=== PATIENT | female | born 1935 | race Caucasian/White ===

== ENCOUNTER 2017-08-04 17:37 | Inpatient (IN) | payer OTHER, MEDICAID ==
[~2017-08-04] VITALS: Ht 154.9 cm; Wt 59.4 kg
[~2017-08-04 17:37] MED LIST: AMLO2.5T2 PO; CALC-1067 PO; CHOL100028 PO; CHOL200035 PO; ESOM40CA PO; GABA-529 PO; GLIM2TAB58 PO; LEVO25TA7 PO; LISI-600 PO; MECL-110 PO; METO100T PO; SIMV20TA2 PO; TAMO20TA4 PO; VITA1CAP PO
[2017-08-04 17:42] VITALS: BP_SYST 160
[2017-08-04] MEDS ORDERED: KETOROLAC TROMETHAMINE 15 MG VIAL IVP ONE (18:15)
[2017-08-04] MEDS ORDERED: ONDANSETRON HCL 4 MG/2 ML VIAL IVP ONE (18:15)
[2017-08-04 18:42] LABS: BASOPHILS % (AUTO) 0.4 % (0.0-2.0); EOSINOPHILS % (AUTO) 0.1 % (0.0-4.0); HEMATOCRIT 40.5 % (36-48); LYMPHOCYTES # (AUTO) 2.1 K/uL (1.0-5.5); MEAN CORPUSCULAR HEMOGLOBIN 28 pg (27-31); MEAN CORPUSCULAR HGB CONC 32 % (32-36); MEAN CORPUSCULAR VOLUME 87 fL (79.0-98.0); MONOCYTES # (AUTO) 0.6 K/uL (0.0-1.0); MONOCYTES % (AUTO) 5.5 % (1.7-9.3); NEUTROPHILS # (AUTO) 7.9 K/uL (1.8-7.7); PLATELET COUNT (AUTO) 380 K/uL (130-430); RED BLOOD CELL COUNT(AUTO) 4.68 MIL/uL (4.2-6.2); RED CELL DISTRIBUTION WIDTH 15.6 % (9.0-15.0); WHITE BLOOD COUNT (AUTO) 10.6 K/uL (4.8-10.8)
[2017-08-04 19:07] LABS: ANION GAP 13 (5-15); CALCIUM 10.1 mg/dL (8.4-11.0); CHLORIDE 105 mmol/L (98-107); CREATININE 1.16 mg/dL (0.55-1.30); GLUCOSE 129 mg/dL (70-99); SODIUM SERUM 142 mmol/L (136-145); UREA NITROGEN, BLOOD 30 mg/dL (8-21)
[2017-08-04 19:11] LABS: ALANINE AMINOTRANSFERASE 20 U/L (12-78); ALBUMIN 4.3 g/dL (3.4-4.8); ASPARTATE AMINOTRANSFERASE 21 U/L (10-37); CHOLESTEROL 273 mg/dL (<200); HDL CHOLESTEROL 65 mg/dL (>55); LDL CHOLESTEROL 200 mg/dL (<100); TOTAL BILIRUBIN 0.7 mg/dL (0.0-1.0); TRIGLYCERIDES 72 mg/dL (30-150)
[2017-08-04 19:51] LABS: BLOOD, URINE NEGATIVE (NEGATIVE); CLARITY/URINE SL CLOUDY (CLEAR); COLOR,URINE YELLOW (YELLOW); GLUCOSE,URINE NEGATIVE (NEGATIVE); KETONES,URINE 2+ (NEGATIVE); LEUKOCYTE ESTERASE ,URINE TRACE (NEGATIVE); NITRITE, URINE NEGATIVE (NEGATIVE); PH,URINE 5.5 (5.0-8.0); PROTEIN URINE 1+ (NEGATIVE); UROBILINOGEN,URINE 0.2 (0.2-1.0)
[2017-08-04 19:53] LABS: BILIRUBIN,URINE NEGATIVE (NEGATIVE)
[2017-08-04 20:01] LABS: BACTERIA,URINE MODERATE /HPF (None Seen); RBC,URINE 0-3 /HPF (0-3); WBC,URINE 20-50 /HPF (0-3)
[2017-08-04 20:02] LABS: MUCUS,URINE 1+ /LPF (None Seen)
[2017-08-04] MEDS ORDERED: ACETAMINOPHEN 325 MG TABLET PO PRN (21:00)
[2017-08-04] MEDS ORDERED: MORPHINE 4 MG/ML INJ. SYRINGE IVP PRN (21:00)
[2017-08-04 21:19] VITALS: BP_SYST 137
[2017-08-04 21:26] LABS: CHOLESTEROL 269 mg/dL (<200); HDL CHOLESTEROL 65 mg/dL (>55); LDL CHOLESTEROL 196 mg/dL (<100); TRIGLYCERIDES 70 mg/dL (30-150)
[2017-08-04] MEDS ORDERED: CARB-61 PO (22:33)
[2017-08-04] MEDS ORDERED: ACET167L15 PO (22:40)
[2017-08-05 00:45] VITALS: BP_SYST 155
[2017-08-05 03:40] VITALS: BP_SYST 160
[2017-08-05] MEDS: LEVOTHYROXINE SODIUM 0.025 MG TABLET PO SCH (06:19)
[2017-08-05 08:40] VITALS: BP_SYST 166
[2017-08-05] MEDS ORDERED: DEXTROSE 50% JECT 50 ML DISP.SYRIN IVP PRN (09:30)
[2017-08-05] MEDS ORDERED: INSULIN REGULAR, HUMAN 100 UNITS/ML, 10 ML VIAL (novoLIN R) SUBCUT PRN (09:30)
[2017-08-05] MEDS ORDERED: ONDANSETRON HCL 4 MG/2 ML VIAL IVP PRN (09:45)
[2017-08-05] MEDS ORDERED: ACETAMINOPHEN 325 MG TABLET PO PRN (09:45)
[2017-08-05] MEDS ORDERED: ENALAPRILAT DIHYDRATE 1.25 MG/ML VIAL IVP PRN (10:30)
[2017-08-05] MEDS ORDERED: PANTOPRAZOLE SODIUM 40 MG/VIAL (PROTONIX) IVP ONE (11:00)
[2017-08-05] MEDS ORDERED: PANTOPRAZOLE SODIUM 40 MG/VIAL (PROTONIX) IVP SCH (11:00)
[2017-08-05] MEDS: SIMVASTATIN 20 MG TABLET PO SCH (11:54)
[2017-08-05] MEDS: LISINOPRIL 20 MG TABLET PO SCH (11:58)
[2017-08-05] MEDS: amLODIPine BESYLATE 5 MG TABLET PO SCH (12:00)
[2017-08-05] MEDS: METOPROLOL TARTRATE 50 MG TABLET PO SCH (12:01)
[2017-08-05] MEDS: ASPIRIN 81 MG TAB.CHEW PO SCH (12:02)
[2017-08-05] MEDS: GABAPENTIN 100 MG CAPSULE PO SCH (12:03)
[2017-08-05] MEDS: NACL 0.9% 1,000 ML IV SCH ×2 (12:11→19:30)
[2017-08-05] MEDS: LEVOFLOXACIN 500 MG/D5W 100 ML IV SCH (12:12)
[2017-08-05 13:36] VITALS: BP_SYST 168
[2017-08-05 14:33] LABS: AMYLASE 134 U/L (0-100); LIPASE 116 U/L (73-393)
[2017-08-05 16:30] VITALS: BP_SYST 148
[2017-08-05 20:00] VITALS: BP_SYST 156
[2017-08-05] MEDS: hydrALAZINE HCL 20 MG/ML VIAL IVP PRN (22:43)
[2017-08-05] MEDS: MORPHINE 2 MG/ML INJ. SYRINGE IVP PRN (23:13)
[2017-08-06 01:22] VITALS: BP_SYST 130
[2017-08-06 03:58] VITALS: BP_SYST 157
[2017-08-06] MEDS: NACL 0.9% 1,000 ML IV SCH ×3 (06:07→23:01)
[2017-08-06] MEDS: hydrALAZINE HCL 20 MG/ML VIAL IVP PRN ×2 (06:08→21:33)
[2017-08-06] MEDS: LEVOTHYROXINE SODIUM 0.025 MG TABLET PO SCH (06:15)
[2017-08-06 06:33] LABS: BASOPHILS % (AUTO) 0.4 % (0.0-2.0); EOSINOPHILS # (AUTO) 0.1 K/uL (0.0-0.4); EOSINOPHILS % (AUTO) 0.5 % (0.0-4.0); HEMATOCRIT 33.1 % (36-48); HEMOGLOBIN 10.9 g/dL (12.0-16.0); LYMPHOCYTES # (AUTO) 2.4 K/uL (1.0-5.5); LYMPHOCYTES % (AUTO) 22.9 % (20.5-51.5); MEAN CORPUSCULAR HEMOGLOBIN 29 pg (27-31); MEAN CORPUSCULAR HGB CONC 33 % (32-36); MEAN CORPUSCULAR VOLUME 88 fL (79.0-98.0); MONOCYTES # (AUTO) 0.7 K/uL (0.0-1.0); MONOCYTES % (AUTO) 6.4 % (1.7-9.3); NEUTROPHILS # (AUTO) 7.1 K/uL (1.8-7.7); NEUTROPHILS % (AUTO) 69.8 % (40.0-70.0); PLATELET COUNT (AUTO) 330 K/uL (130-430); RED BLOOD CELL COUNT(AUTO) 3.79 MIL/uL (4.2-6.2); RED CELL DISTRIBUTION WIDTH 15.7 % (9.0-15.0); WHITE BLOOD COUNT (AUTO) 10.3 K/uL (4.8-10.8)
[2017-08-06] MEDS ORDERED: SIMETHICONE 40 MG/0.6 ML ML ONE (06:53)
[2017-08-06] MEDS ORDERED: fentaNYL CITRATE/PF 100 MCG/2 ML AMP ONE (06:54)
[2017-08-06 07:05] LABS: PROTHROMBIN TIME 10.4 SECS (9.5-12.5)
[2017-08-06 07:07] LABS: ANION GAP 12 (5-15); CALCIUM 9.6 mg/dL (8.4-11.0); CHLORIDE 109 mmol/L (98-107); CREATININE 1.03 mg/dL (0.55-1.30); GLUCOSE 91 mg/dL (70-99); SODIUM SERUM 146 mmol/L (136-145); UREA NITROGEN, BLOOD 39 mg/dL (8-21)
[2017-08-06] MEDS: MORPHINE 2 MG/ML INJ. SYRINGE IVP PRN (07:18)
[2017-08-06 07:25] LABS: ALANINE AMINOTRANSFERASE 14 U/L (12-78); ALBUMIN 3.3 g/dL (3.4-4.8); ASPARTATE AMINOTRANSFERASE 17 U/L (10-37); TOTAL BILIRUBIN 0.4 mg/dL (0.0-1.0)
[2017-08-06] MEDS: MIDAZOLAM HCL 5 MG/5 ML VIAL ONE ×4 (07:30→07:46)
[2017-08-06 08:45] VITALS: BP_SYST 123
[2017-08-06] MEDS: GABAPENTIN 100 MG CAPSULE PO SCH (09:00)
[2017-08-06] MEDS: ASPIRIN 81 MG TAB.CHEW PO SCH (09:00)
[2017-08-06] MEDS: SIMVASTATIN 20 MG TABLET PO SCH (09:00)
[2017-08-06] MEDS ORDERED: PANTOPRAZOLE SODIUM 40 MG/VIAL (PROTONIX) IVP SCH (09:00)
[2017-08-06] MEDS: METOPROLOL TARTRATE 50 MG TABLET PO SCH (09:00)
[2017-08-06] MEDS: amLODIPine BESYLATE 5 MG TABLET PO SCH (09:00)
[2017-08-06] MEDS: LISINOPRIL 20 MG TABLET PO SCH (09:00)
[2017-08-06] MEDS: PANTOPRAZOLE SODIUM 40 MG/VIAL (PROTONIX) IVP SCH ×2 (11:33→21:32)
[2017-08-06] MEDS: LEVOFLOXACIN 500 MG/D5W 100 ML IV SCH (11:34)
[2017-08-06 11:35] VITALS: BP_SYST 123
[2017-08-06 16:27] VITALS: BP_SYST 139
[2017-08-06 20:00] VITALS: BP_SYST 164
[2017-08-07 00:24] VITALS: BP_SYST 125
[2017-08-07 04:49] VITALS: BP_SYST 151
[2017-08-07] MEDS: LEVOTHYROXINE SODIUM 0.025 MG TABLET PO SCH (06:36)
[2017-08-07 08:38] VITALS: BP_SYST 199
[2017-08-07] MEDS: amLODIPine BESYLATE 5 MG TABLET PO SCH (09:00)
[2017-08-07] MEDS: GABAPENTIN 100 MG CAPSULE PO SCH (09:00)
[2017-08-07] MEDS: LISINOPRIL 20 MG TABLET PO SCH (09:00)
[2017-08-07] MEDS: ASPIRIN 81 MG TAB.CHEW PO SCH (09:00)
[2017-08-07] MEDS: SIMVASTATIN 20 MG TABLET PO SCH (09:00)
[2017-08-07] MEDS: PANTOPRAZOLE SODIUM 40 MG/VIAL (PROTONIX) IVP SCH ×2 (09:24→22:05)
[2017-08-07] MEDS: METOPROLOL TARTRATE 50 MG TABLET PO SCH (09:25)
[2017-08-07] MEDS: NACL 0.9% 1,000 ML IV SCH ×2 (11:21→23:58)
[2017-08-07] MEDS: LEVOFLOXACIN 500 MG/D5W 100 ML IV SCH (11:21)
[2017-08-07 13:07] VITALS: BP_SYST 147
[2017-08-07] MEDS: hydrALAZINE HCL 20 MG/ML VIAL IVP PRN (17:03)
[2017-08-07 17:21] VITALS: BP_SYST 169
[2017-08-07 20:33] VITALS: BP_SYST 137
[2017-08-08 01:05] VITALS: BP_SYST 138
[2017-08-08 05:20] VITALS: BP_SYST 158
[2017-08-08] MEDS: LEVOTHYROXINE SODIUM 0.025 MG TABLET PO SCH (06:35)
[2017-08-08 08:07] VITALS: BP_SYST 166
[2017-08-08] MEDS: ASPIRIN 81 MG TAB.CHEW PO SCH (08:52)
[2017-08-08] MEDS: amLODIPine BESYLATE 5 MG TABLET PO SCH (08:53)
[2017-08-08] MEDS: METOPROLOL TARTRATE 50 MG TABLET PO SCH (08:54)
[2017-08-08] MEDS: GABAPENTIN 100 MG CAPSULE PO SCH (08:54)
[2017-08-08] MEDS: LISINOPRIL 20 MG TABLET PO SCH (08:54)
[2017-08-08] MEDS: SIMVASTATIN 20 MG TABLET PO SCH (08:54)
[2017-08-08] MEDS: PANTOPRAZOLE SODIUM 40 MG/VIAL (PROTONIX) IVP SCH (08:55)
[2017-08-08] MEDS: NACL 0.9% 1,000 ML IV SCH (11:42)
[2017-08-08] MEDS: LEVOFLOXACIN 500 MG/D5W 100 ML IV SCH (11:42)
[2017-08-08 12:00] VITALS: BP_SYST 144
[2017-08-08 14:25] VITALS: BP_SYST 144
[2017-08-08 16:25] VITALS: BP_SYST 139
== END 2017-08-08 17:17 | disposition home or self-care (01) | DRG 392 ==
LOC: SED 17:37 → STU 21:07
PROVIDERS: ADMIT Internal Medicine Hospice and Palliative Medicine; ATTEND Internal Medicine Hospice and Palliative Medicine
PROC: 0DB38ZX Excision of Lower Esophagus, Via Natural or Artificial Opening Endoscopic, Diagnostic (ICD-10-PCS; 2017-08-06)
PROC: 0DB68ZX Excision of Stomach, Via Natural or Artificial Opening Endoscopic, Diagnostic (ICD-10-PCS; 2017-08-06)
PROC: 0DB18ZX Excision of Upper Esophagus, Via Natural or Artificial Opening Endoscopic, Diagnostic (ICD-10-PCS; 2017-08-06)
PROC: 0DC58ZZ Extirpation of Matter from Esophagus, Via Natural or Artificial Opening Endoscopic (ICD-10-PCS; principal; 2017-08-06 07:30)
DX: K20.9 Esophagitis, unspecified (principal); G20 Parkinson's disease; E11.9 Type 2 diabetes mellitus without complications; T18.128A Food in esophagus causing other injury, initial encounter; I10 Essential (primary) hypertension; E03.9 Hypothyroidism, unspecified; E78.5 Hyperlipidemia, unspecified; I25.10 Atherosclerotic heart disease of native coronary artery without angina pectoris; R19.5 Other fecal abnormalities; X58.XXXA Exposure to other specified factors, initial encounter; Y93.89 Activity, other specified; Z85.3 Personal history of malignant neoplasm of breast; Z95.2 Presence of prosthetic heart valve; Z90.13 Acquired absence of bilateral breasts and nipples; Z90.49 Acquired absence of other specified parts of digestive tract; Z80.3 Family history of malignant neoplasm of breast; Z88.0 Allergy status to penicillin; Y92.89 Other specified places as the place of occurrence of the external cause; Y99.8 Other external cause status
CPT/HCPCS: 36415; 43239; 71010; 80053; 80061; 81000-TC; 82150-TC; 82962; 83690-TC; 83880; 84484; 85025; 85610-TC; 85730-TC; 87081; 87086; 88305; 88313; 92610-GN; 93005; 93306; 96374; 96375; 97110-GP; 97116-GP; 97530-GP; 99285; C9113; J0360; J1815; J1885; J1956; J2250; J2270; J2405; J3010; J7030

== ENCOUNTER 2019-04-25 15:02 | Emergency (ER) | payer OTHER, MEDICAID ==
[~2019-04-25] VITALS: Ht 157.5 cm; Wt 72.6 kg
[~2019-04-25 15:02] MED LIST changes: +ACET167L15 PO; +CARB-61 PO; -CHOL100028 PO; +CHOL100034 PO; -CHOL200035 PO; +CHOL200075 PO
[2019-04-25] MEDS ORDERED: NACL 0.9% 1,000 ML IV ONE (15:11)
[2019-04-25] MEDS ORDERED: MORPHINE 4 MG/ML INJ. SYRINGE IVP ONE (15:15)
[2019-04-25] MEDS ORDERED: ONDANSETRON HCL 4 MG/2 ML VIAL IVP ONE (15:15)
[2019-04-25 15:25] VITALS: BP_SYST 130
[2019-04-25 16:39] LABS: BASOPHILS % (AUTO) 0.4 % (0.0-2.0); EOSINOPHILS % (AUTO) 0.4 % (0.0-4.0); HEMATOCRIT 35.9 % (36-48); HEMOGLOBIN 12.1 g/dL (12.0-16.0); LYMPHOCYTES # (AUTO) 2.8 K/uL (1.0-5.5); LYMPHOCYTES % (AUTO) 33.8 % (20.5-51.5); MEAN CORPUSCULAR HEMOGLOBIN 31 pg (27-31); MEAN CORPUSCULAR HGB CONC 34 % (32-36); MEAN CORPUSCULAR VOLUME 92 fL (79.0-98.0); MONOCYTES # (AUTO) 0.5 K/uL (0.0-1.0); MONOCYTES % (AUTO) 6.6 % (1.7-9.3); NEUTROPHILS # (AUTO) 4.8 K/uL (1.8-7.7); NEUTROPHILS % (AUTO) 58.8 % (40.0-70.0); PLATELET COUNT (AUTO) 324 K/uL (130-430); RED BLOOD CELL COUNT(AUTO) 3.91 MIL/uL (4.2-6.2); WHITE BLOOD COUNT (AUTO) 8.2 K/uL (4.8-10.8)
[2019-04-25 16:53] LABS: ANION GAP 8 (5-15); CALCIUM 9.9 mg/dL (8.4-11.0); CHLORIDE 102 mmol/L (98-107); GLUCOSE 99 mg/dL (70-99); INR 0.9 (0.8-1.2); POTASSIUM 4.2 mmol/L (3.5-5.1); PROTHROMBIN TIME 9.3 SECS (9.5-12.5); SODIUM SERUM 134 mmol/L (136-145); UREA NITROGEN, BLOOD 16 mg/dL (8-21)
[2019-04-25 16:57] LABS: ALANINE AMINOTRANSFERASE 6 U/L (12-78); ALBUMIN 3.7 g/dL (3.4-4.8); AMYLASE 75 U/L (0-100); ASPARTATE AMINOTRANSFERASE 24 U/L (10-37); LIPASE 124 U/L (73-393); TOTAL BILIRUBIN 0.5 mg/dL (0.0-1.0)
--- NOTE | 2019-04-25 17:11 | NUR ---
Patient to ER bed 3 to gown for evaluation. Side rails up.
--- NOTE | 2019-04-25 17:31 | NUR ---
PATIENT CAME IN COMPLAINING OF ABD PAIN FOR PAST 2 WEEKS THAT GOT WORST TODAY. PATIENT COMPLAINING OF PAIN 6/10 RADIATING TO BACK. PATIENT UNABLE TO DEISCRIBE PAIN. PATIENT STATES SHE HASNT TAKEN ANY PAIN MEDS. PATIENT NOT COMPLAINING OF NAUSEA, VOMITING, DIRRHEA, OR CONSTIPATION. PATIENT DENIES SOB. PATIENT IS ALERT AND ORIENTED X4.
[2019-04-25] MEDS ORDERED: ONDANSETRON HCL 4 MG/2 ML VIAL ONE (17:57)
[2019-04-25] MEDS ORDERED: MORPHINE 4 MG/ML INJ. SYRINGE ONE (17:59)
--- NOTE | 2019-04-25 18:03 | NUR ---
ER Dr. HERNANDEZ at bedside examining patient.
[2019-04-25 18:26] LABS: BILIRUBIN,URINE NEGATIVE (NEGATIVE); BLOOD, URINE NEGATIVE (NEGATIVE); CLARITY/URINE CLEAR (CLEAR); COLOR,URINE YELLOW (YELLOW); GLUCOSE,URINE NEGATIVE (NEGATIVE); KETONES,URINE NEGATIVE (NEGATIVE); LEUKOCYTE ESTERASE ,URINE 1+ (NEGATIVE); NITRITE, URINE NEGATIVE (NEGATIVE); PROTEIN URINE NEGATIVE (NEGATIVE); UROBILINOGEN,URINE 0.2 (0.2-1.0)
[2019-04-25 18:40] LABS: BACTERIA,URINE FEW /HPF (None Seen); MUCUS,URINE None Seen /LPF (None Seen); RBC,URINE 0-3 /HPF (0-3); WBC,URINE 20-50 /HPF (0-3)
--- NOTE | 2019-04-25 18:52 | NUR ---
PATIENT COMPLAINING OF SUDDEN PAIN IN ABD. PATIENT STATES FEELS LIKE SOME THING GROWING INSIDE HER. DR HERNANDEZ AWARE.
[2019-04-25] MEDS ORDERED: SIMETHICONE 40 MG/0.6 ML ML PO ONE (19:00)
--- NOTE | 2019-04-25 19:12 | NUR ---
ENDORSED CARE TO JEOVANNY CUMMINGS.
[2019-04-25] MEDS ORDERED: MAG-AL HYDROX/SIMETH 30 ML UDC PO ONE (19:15)
[2019-04-25] MEDS ORDERED: MAG-AL HYDROX/SIMETH 30 ML UDC ONE (19:16)
[2019-04-25 19:46] VITALS: BP_SYST 118
--- NOTE | 2019-04-25 19:46 | NUR ---
Patient given written and verbal discharge instructions and verbalizes understanding. ER MD discussed with patient the results and treatment provided. Patient in stable condition. ID arm band removed. IV catheter removed intact and dressing applied, no active bleeding. Rx of Zofran, Tylenol, and Ranitidine given. Patient educated on pain management and to follow up with PMD. Pain Scale 0/10. Opportunity for questions provided and answered. Medication side effect fact sheet provided.
== END 2019-04-25 19:46 | disposition home or self-care (01) ==
LOC: SED 15:02
DX: R10.13 Epigastric pain (principal); I10 Essential (primary) hypertension; E78.00 Pure hypercholesterolemia, unspecified; Z90.49 Acquired absence of other specified parts of digestive tract; Z87.718 Personal history of other specified (corrected) congenital malformations of genitourinary system; Z85.3 Personal history of malignant neoplasm of breast
CPT/HCPCS: 36415; 71045; 74176; 80053; 81000; 82150; 83605; 83690; 85025; 85610; 85730; 87040; 87086; 96361; 96374; 96375; 99284; J2270; J2405; J7030

== ENCOUNTER 2019-05-18 14:20 | Emergency (ER) | payer OTHER, MEDICAID ==
[~2019-05-18] VITALS: Ht 157.5 cm; Wt 54.4 kg
[2019-05-18 14:33] VITALS: BP_SYST 154
--- NOTE | 2019-05-18 15:22 | NUR ---
Patient to ER bed 08 to gown for evaluation. Side rails up.
--- NOTE | 2019-05-18 15:37 | NUR ---
ER Dr. Fraire at bedside examining patient.
--- NOTE | 2019-05-18 15:40 | NUR ---
pt brought in by family member. pt states she has has ongoing ruq abdominal pain x2 weeks with increasing severity. pt states at rest pain is minimal, but exacerbated with eating or movemement. pt denies chest pain, nausea, dizziness, blurred vision, sob. pt has no other complaint at this time. pt resting comfortably in er bed. will continue to monitor
[2019-05-18] MEDS ORDERED: MAG HYDROX/AL HYDROX/SIMETH 30 ML, DICYCLOMINE HCL 20 MG, LIDOCAINE VISCOUS 2% 15ML (PO... PO ONE ×3 (16:00)
[2019-05-18 16:07] LABS: BASOPHILS # (AUTO) 0.1 K/uL (0.0-0.2); BASOPHILS % (AUTO) 0.8 % (0.0-2.0); EOSINOPHILS % (AUTO) 0.5 % (0.0-4.0); HEMATOCRIT 36.6 % (36-48); HEMOGLOBIN 12.1 g/dL (12.0-16.0); LYMPHOCYTES # (AUTO) 2.8 K/uL (1.0-5.5); LYMPHOCYTES % (AUTO) 33.3 % (20.5-51.5); MEAN CORPUSCULAR HEMOGLOBIN 31 pg (27-31); MEAN CORPUSCULAR HGB CONC 33 % (32-36); MEAN CORPUSCULAR VOLUME 92 fL (79.0-98.0); MONOCYTES # (AUTO) 0.6 K/uL (0.0-1.0); MONOCYTES % (AUTO) 7.1 % (1.7-9.3); NEUTROPHILS # (AUTO) 4.9 K/uL (1.8-7.7); NEUTROPHILS % (AUTO) 58.3 % (40.0-70.0); PLATELET COUNT (AUTO) 307 K/uL (130-430); RED BLOOD CELL COUNT(AUTO) 3.97 MIL/uL (4.2-6.2); WHITE BLOOD COUNT (AUTO) 8.3 K/uL (4.8-10.8)
--- NOTE | 2019-05-18 16:16 | NUR ---
medicated per md orders. patient tolerated well.
--- NOTE | 2019-05-18 16:16 | NUR ---
Oh santiago in EDM - 05/18/19 at 1616 by [email or web address] medicated per md orders. nolasco tolerated well.
[2019-05-18 16:24] LABS: ANION GAP 6 (5-15); CHLORIDE 103 mmol/L (98-107); CREATININE 1.09 mg/dL (0.55-1.30); GLUCOSE 103 mg/dL (70-99); POTASSIUM 4.5 mmol/L (3.5-5.1); SODIUM SERUM 137 mmol/L (136-145); UREA NITROGEN, BLOOD 21 mg/dL (8-21)
[2019-05-18 16:28] LABS: ALANINE AMINOTRANSFERASE 56 U/L (12-78); ALBUMIN 3.7 g/dL (3.4-4.8); ASPARTATE AMINOTRANSFERASE 32 U/L (10-37); LIPASE 116 U/L (73-393); TOTAL BILIRUBIN 0.5 mg/dL (0.0-1.0)
--- NOTE | 2019-05-18 16:42 | NUR ---
pt resting in bed comfortably. pt states she has pain and discomfort relief after medication, but still feels like she is "bloated".
--- NOTE | 2019-05-18 16:42 | NUR ---
Note pamela in ED - 05/18/19 at 1645 by [email or web address] pt resting in bed comfortably. pt states hse has pain and discomfort relief, but still feels like she is "bloated".
[2019-05-18 17:27] VITALS: BP_SYST 150
--- NOTE | 2019-05-18 17:27 | NUR ---
Patient given written and verbal discharge instructions and verbalizes understanding. ER MD discussed with patient the results and treatment provided. Patient in stable condition. ID arm band removed. Rx of TRAMADOL, MAGNESIUM CITRATE, PEPCID given. Patient educated on pain management and to follow up with PMD. Pain Scale 2/10. Opportunity for questions provided and answered. Medication side effect fact sheet provided.
== END 2019-05-18 17:27 | disposition home or self-care (01) ==
LOC: SED 14:20
DX: K59.00 Constipation, unspecified (principal); E11.9 Type 2 diabetes mellitus without complications; I10 Essential (primary) hypertension; E07.9 Disorder of thyroid, unspecified; E78.00 Pure hypercholesterolemia, unspecified; Z90.49 Acquired absence of other specified parts of digestive tract; Z88.0 Allergy status to penicillin; Z79.899 Other long term (current) drug therapy
CPT/HCPCS: 36415; 74021; 80053; 83690; 85025; 99284; J2001; J7030

== ENCOUNTER 2019-07-02 14:35 | Emergency (ER) | payer OTHER, MEDICAID ==
[~2019-07-02] VITALS: Ht 157.5 cm; Wt 59.0 kg
--- NOTE | 2019-07-02 14:55 | NUR ---
Patient to ER bed 08 to gown for evaluation. Side rails up.
[2019-07-02 14:56] VITALS: BP_SYST 151
--- NOTE | 2019-07-02 14:57 | NUR ---
Pt broguht by caregiver, A&Ox4, pt presents to ER with abrassions on L face after trip and fall , pt denies KO , skin pink and warm, cap refill <3, VSS, respirations even and unlabored, follows instructions.
--- NOTE | 2019-07-02 15:00 | NUR ---
16 # FR In and Out catheter with use of sterile technique. Immediate return of 100 ml urine noted. Urine sample collected and sent to lab. Pt tolerated procedure .
--- NOTE | 2019-07-02 15:00 | NUR ---
Dr Mark at bedside examining patient
[2019-07-02] MEDS ORDERED: NACL 0.9% 1,000 ML IV ONE (15:07)
[2019-07-02] MEDS ORDERED: MORPHINE 4 MG/ML INJ. SYRINGE IVP ONE (15:15)
[2019-07-02 15:35] LABS: BASOPHILS % (AUTO) 0.6 % (0.0-2.0); EOSINOPHILS % (AUTO) 0.6 % (0.0-4.0); HEMATOCRIT 36.1 % (36-48); HEMOGLOBIN 12.1 g/dL (12.0-16.0); LYMPHOCYTES % (AUTO) 39.2 % (20.5-51.5); MEAN CORPUSCULAR HEMOGLOBIN 31 pg (27-31); MEAN CORPUSCULAR HGB CONC 33 % (32-36); MEAN CORPUSCULAR VOLUME 92 fL (79.0-98.0); MONOCYTES # (AUTO) 0.5 K/uL (0.0-1.0); NEUTROPHILS % (AUTO) 52.6 % (40.0-70.0); PLATELET COUNT (AUTO) 299 K/uL (130-430); RED BLOOD CELL COUNT(AUTO) 3.93 MIL/uL (4.2-6.2); RED CELL DISTRIBUTION WIDTH 14.8 % (9.0-15.0); WHITE BLOOD COUNT (AUTO) 7.6 K/uL (4.8-10.8)
[2019-07-02 15:40] LABS: BILIRUBIN,URINE NEGATIVE (NEGATIVE); BLOOD, URINE NEGATIVE (NEGATIVE); CLARITY/URINE CLEAR (CLEAR); COLOR,URINE YELLOW (YELLOW); GLUCOSE,URINE NEGATIVE (NEGATIVE); KETONES,URINE NEGATIVE (NEGATIVE); LEUKOCYTE ESTERASE ,URINE 1+ (NEGATIVE); NITRITE, URINE NEGATIVE (NEGATIVE); PROTEIN URINE NEGATIVE (NEGATIVE); UROBILINOGEN,URINE 0.2 (0.2-1.0)
[2019-07-02 15:46] LABS: ANION GAP 5 (5-15); CHLORIDE 106 mmol/L (98-107); CREATININE 0.98 mg/dL (0.55-1.30); GLUCOSE 91 mg/dL (70-99); POTASSIUM 4.3 mmol/L (3.5-5.1); SODIUM SERUM 138 mmol/L (136-145); UREA NITROGEN, BLOOD 13 mg/dL (8-21)
[2019-07-02 15:52] LABS: ALANINE AMINOTRANSFERASE 19 U/L (12-78); ALBUMIN 3.6 g/dL (3.4-4.8); ASPARTATE AMINOTRANSFERASE 25 U/L (10-37); TOTAL BILIRUBIN 0.4 mg/dL (0.0-1.0)
[2019-07-02] MEDS ORDERED: ONDANSETRON HCL 4 MG/2 ML VIAL IVP ONE (16:00)
[2019-07-02 16:06] LABS: BACTERIA,URINE FEW /HPF (None Seen); MUCUS,URINE None Seen /LPF (None Seen); RBC,URINE 0-3 /HPF (0-3)
--- NOTE | 2019-07-02 16:13 | NUR ---
Pt medicated as ordered,well tolerated.
--- NOTE | 2019-07-02 17:02 | NUR ---
Pt A&Ox4, VSS, respirations even and unlabored
[2019-07-02 18:20] VITALS: BP_SYST 138
--- NOTE | 2019-07-02 18:30 | NUR ---
Patient given written and verbal discharge instructions and verbalizes understanding. ER MD discussed with patient the results and treatment provided. Patient in stable condition. ID arm band removed. IV catheter removed intact and dressing applied, no active bleeding. Rx of Atorvastatin and Pepcid given. Patient educated on pain management and to follow up with PMD. Pain Scale 2/10 tolerable for patient . Opportunity for questions provided and answered. Medication side effect fact sheet provided.
== END 2019-07-02 18:20 | disposition home or self-care (01) ==
LOC: SED 14:35
DX: K55.1 Chronic vascular disorders of intestine (principal); I10 Essential (primary) hypertension; E78.00 Pure hypercholesterolemia, unspecified; G20 Parkinson's disease; Z90.49 Acquired absence of other specified parts of digestive tract; Z85.3 Personal history of malignant neoplasm of breast; Z88.0 Allergy status to penicillin; Z79.899 Other long term (current) drug therapy
CPT/HCPCS: 36415; 74176; 80053; 81000; 82962; 85025; 87086; 96374; 96375; 99284; J2270; J2405; J7030

== ENCOUNTER 2019-07-05 17:47 | Emergency (ER) | payer OTHER, MEDICAID ==
[~2019-07-05] VITALS: Ht 157.5 cm; Wt 59.0 kg
[2019-07-05 17:57] VITALS: BP_SYST 142
--- NOTE | 2019-07-05 18:35 | NUR ---
Patient to ER bed 08 to gown for evaluation. Side rails up.
--- NOTE | 2019-07-05 18:37 | NUR ---
Pt brought by Son, A&Ox4, pt presents to ER with weakness RUQ abd pain and nausea, pt denies chest pain , skin pink and warm, cap refill <3.
[2019-07-05 18:40] LABS: BASOPHILS % (AUTO) 0.4 % (0.0-2.0); EOSINOPHILS % (AUTO) 0.4 % (0.0-4.0); HEMATOCRIT 38.6 % (36-48); HEMOGLOBIN 13.2 g/dL (12.0-16.0); LYMPHOCYTES # (AUTO) 3.2 K/uL (1.0-5.5); LYMPHOCYTES % (AUTO) 33.3 % (20.5-51.5); MEAN CORPUSCULAR HEMOGLOBIN 31 pg (27-31); MEAN CORPUSCULAR HGB CONC 34 % (32-36); MEAN CORPUSCULAR VOLUME 91 fL (79.0-98.0); MONOCYTES # (AUTO) 0.7 K/uL (0.0-1.0); MONOCYTES % (AUTO) 7.6 % (1.7-9.3); NEUTROPHILS # (AUTO) 5.5 K/uL (1.8-7.7); NEUTROPHILS % (AUTO) 58.3 % (40.0-70.0); PLATELET COUNT (AUTO) 296 K/uL (130-430); RED BLOOD CELL COUNT(AUTO) 4.25 MIL/uL (4.2-6.2); WHITE BLOOD COUNT (AUTO) 9.5 K/uL (4.8-10.8)
[2019-07-05 18:50] LABS: ANION GAP 8 (5-15); CALCIUM 10.5 mg/dL (8.4-11.0); CHLORIDE 104 mmol/L (98-107); CREATININE 1.08 mg/dL (0.55-1.30); GLUCOSE 100 mg/dL (70-99); POTASSIUM 4.4 mmol/L (3.5-5.1); SODIUM SERUM 138 mmol/L (136-145); UREA NITROGEN, BLOOD 15 mg/dL (8-21)
[2019-07-05 18:56] LABS: ALANINE AMINOTRANSFERASE 33 U/L (12-78); ALBUMIN 3.8 g/dL (3.4-4.8); AMYLASE 67 U/L (0-100); ASPARTATE AMINOTRANSFERASE 25 U/L (10-37); LACTATE DEHYDROGENASE 167 U/L (81-234); LIPASE 153 U/L (73-393); PROTHROMBIN TIME 9.9 SECS (9.5-12.5); TOTAL BILIRUBIN 0.6 mg/dL (0.0-1.0)
--- NOTE | 2019-07-05 19:35 | NUR ---
Dr Brock at bedside examining patient
--- NOTE | 2019-07-05 19:38 | NUR ---
16# FR In and Out catheter with use of sterile technique. Immediate return of 150 ml urine noted. Urine sample collected and sent to lab. Pt tolerated procedure .
--- NOTE | 2019-07-05 19:38 | NUR ---
Note pamela in EDM - 07/05/19 at 1938 by [email or web address] 16# FR In and Out catheter with use of sterile technique. Immediate return of ml urine noted. Urine sample collected and sent to lab. Pt tolerated procedure .
[2019-07-05] MEDS ORDERED: NACL 0.9% 1,000 ML IV ONE (19:51)
[2019-07-05 20:00] LABS: BILIRUBIN,URINE NEGATIVE (NEGATIVE); BLOOD, URINE NEGATIVE (NEGATIVE); CLARITY/URINE CLEAR (CLEAR); COLOR,URINE YELLOW (YELLOW); GLUCOSE,URINE NEGATIVE (NEGATIVE); KETONES,URINE NEGATIVE (NEGATIVE); LEUKOCYTE ESTERASE ,URINE 1+ (NEGATIVE); NITRITE, URINE NEGATIVE (NEGATIVE); PROTEIN URINE NEGATIVE (NEGATIVE); UROBILINOGEN,URINE 0.2 (0.2-1.0)
[2019-07-05] MEDS ORDERED: ONDANSETRON HCL 4 MG/2 ML VIAL IVP ONE (20:00)
[2019-07-05 20:09] LABS: BACTERIA,URINE FEW /HPF (None Seen); RBC,URINE 0-3 /HPF (0-3); WBC,URINE 20-50 /HPF (0-3)
--- NOTE | 2019-07-05 20:44 | NUR ---
ultrasound at bedside.
--- NOTE | 2019-07-05 21:41 | NUR ---
# 22 gauge angiocath placed to LFA. Use of asceptic technique. Opsite placed over site. Blood return noted. Flushed with 10 cc of normal saline. No evidence of infiltration noted. Patient tolerated well.
[2019-07-05] MEDS ORDERED: MORPHINE 2 MG/ML INJ. SYRINGE IVP ONE (21:45)
--- NOTE | 2019-07-05 21:50 | NUR ---
PATIENT MEDICATED PER MD ORDERS. PATIENT TOLERATED WELL.
--- NOTE | 2019-07-05 22:33 | NUR ---
PATIENT OFF UNIT TO RADIOLOGY FOR CT SCAN WITH JEOVANNY FAJARDO
--- NOTE | 2019-07-05 22:43 | NUR ---
PATIENT RETURNED FROM RADIOLOGY IN STABLE CONDITION
--- NOTE | 2019-07-06 00:20 | NUR ---
DR. VEE AT BEDSIDE DISCUSSING RESULTS
[2019-07-06] MEDS ORDERED: HYDROcodone/ACETAMIN 5-325 MG TAB (NORCO/ VICODIN) PO ONE (00:45)
[2019-07-06 00:47] VITALS: BP_SYST 136
--- NOTE | 2019-07-06 00:47 | NUR ---
Patient given written and verbal discharge instructions and verbalizes understanding. ER MD discussed with patient the results and treatment provided. Patient in stable condition. ID arm band removed. IV catheter removed intact and dressing applied, no active bleeding. Rx of NORCO given. Patient educated on pain management and to follow up with PMD IN 2-3 DAYS. Pain Scale 0/10 Opportunity for questions provided and answered. Medication side effect fact sheet provided.
== END 2019-07-06 00:47 | disposition home or self-care (01) ==
LOC: SED 17:47
DX: N20.0 Calculus of kidney (principal); N32.89 Other specified disorders of bladder; I10 Essential (primary) hypertension; E78.00 Pure hypercholesterolemia, unspecified; G20 Parkinson's disease; Z85.3 Personal history of malignant neoplasm of breast; Z88.0 Allergy status to penicillin; Z79.899 Other long term (current) drug therapy
CPT/HCPCS: 36415; 74018; 74176; 76700; 80053; 81000; 82150; 83605; 83615; 83690; 85025; 85610; 85730; 87086; 87186; 96374; 96375; 99284; J2270; J2405; J7030

== ENCOUNTER 2019-08-10 12:46 | Emergency (ER) | payer OTHER, MEDICAID ==
[~2019-08-10] VITALS: Ht 157.5 cm; Wt 59.0 kg
[2019-08-10 13:13] VITALS: BP_SYST 152
[2019-08-10] MEDS ORDERED: KETOROLAC TROMETHAMINE 60 MG/2 ML VIAL IM ONE (16:45)
[2019-08-10] MEDS ORDERED: KETOROLAC TROMETHAMINE 30 MG VIAL IVP ONE (17:00)
[2019-08-10 17:16] LABS: BASOPHILS # (AUTO) 0.1 K/uL (0.0-0.2); BASOPHILS % (AUTO) 0.7 % (0.0-2.0); EOSINOPHILS % (AUTO) 0.5 % (0.0-4.0); HEMATOCRIT 35.7 % (36-48); HEMOGLOBIN 12.1 g/dL (12.0-16.0); LYMPHOCYTES # (AUTO) 3.5 K/uL (1.0-5.5); LYMPHOCYTES % (AUTO) 38.3 % (20.5-51.5); MEAN CORPUSCULAR HEMOGLOBIN 30 pg (27-31); MEAN CORPUSCULAR HGB CONC 34 % (32-36); MEAN CORPUSCULAR VOLUME 90 fL (79.0-98.0); MONOCYTES # (AUTO) 0.6 K/uL (0.0-1.0); MONOCYTES % (AUTO) 6.8 % (1.7-9.3); NEUTROPHILS # (AUTO) 4.9 K/uL (1.8-7.7); NEUTROPHILS % (AUTO) 53.7 % (40.0-70.0); PLATELET COUNT (AUTO) 272 K/uL (130-430); RED BLOOD CELL COUNT(AUTO) 3.97 MIL/uL (4.2-6.2); RED CELL DISTRIBUTION WIDTH 14.8 % (9.0-15.0); WHITE BLOOD COUNT (AUTO) 9.2 K/uL (4.8-10.8)
[2019-08-10 17:18] LABS: ANION GAP 7 (5-15); CALCIUM 10.3 mg/dL (8.4-11.0); CHLORIDE 103 mmol/L (98-107); CREATININE 0.93 mg/dL (0.55-1.30); GLUCOSE 91 mg/dL (70-99); POTASSIUM 4.5 mmol/L (3.5-5.1); SODIUM SERUM 136 mmol/L (136-145); UREA NITROGEN, BLOOD 14 mg/dL (8-21)
[2019-08-10 17:24] LABS: ALANINE AMINOTRANSFERASE 22 U/L (12-78); ALBUMIN 3.7 g/dL (3.4-4.8); ASPARTATE AMINOTRANSFERASE 19 U/L (10-37); LIPASE 81 U/L (73-393); TOTAL BILIRUBIN 0.6 mg/dL (0.0-1.0)
[2019-08-10 19:10] VITALS: BP_SYST 148
== END 2019-08-10 19:10 | disposition home or self-care (01) ==
LOC: SED 12:46
DX: R10.11 Right upper quadrant pain (principal); E11.9 Type 2 diabetes mellitus without complications; I10 Essential (primary) hypertension; E78.00 Pure hypercholesterolemia, unspecified; Z88.0 Allergy status to penicillin; Z79.899 Other long term (current) drug therapy
CPT/HCPCS: 36415; 74021; 80053; 83690; 85025; 96374; 99284; J1885

== ENCOUNTER 2020-03-20 03:30 | Emergency (ER) | payer OTHER, MEDICAID ==
[~2020-03-20] VITALS: Ht 157.5 cm; Wt 65.8 kg
--- NOTE | 2020-03-20 03:40 | NUR ---
Patient to ER bed 2 to gown for evaluation. Side rails up.
[2020-03-20 03:50] VITALS: BP_SYST 151
--- NOTE | 2020-03-20 03:55 | NUR ---
ER Dr. PARK at bedside examining patient.
--- NOTE | 2020-03-20 04:00 | NUR ---
PT C/O OF ABDOMINAL PAIN, WEAKNESS IN LEGS, NAUSEA THAT STARTED LAST NIGHT. PT REPORTS LOSS OF APPETITE FOR PAST TWO WEEKS. PT STATES PAIN RADIATES TO HER BACK, 06/01. PT DENIES VOMITING, DIARRHEA, SOB. PT IS WOLOF SPEAKING. SON IS AT BEDSIDE TRANSLATING.
--- NOTE | 2020-03-20 04:05 | NUR ---
SON REPORTS HX OF KIDNEY STONES.
[2020-03-20] MEDS ORDERED: KETOROLAC TROMETHAMINE 30 MG VIAL IVP ONE (04:15)
[2020-03-20] MEDS ORDERED: NS 500 ML IV ONE (04:15)
--- NOTE | 2020-03-20 04:17 | NUR ---
# 20 gauge angiocath placed to LAC. Use of asceptic technique. Opsite placed over site. Blood return noted. Blood, blood cultures, lactic for lab drawn from site. Flushed with 10 cc of normal saline. No evidence of infiltration noted. Patient tolerated well.
--- NOTE | 2020-03-20 04:35 | NUR ---
Patient transported to radiology via GURNEY, accompanied by KHOI.
[2020-03-20 04:36] LABS: LYMPHOCYTES # (AUTO) 1.1 K/uL (1.0-5.5); MONOCYTES # (AUTO) 0.3 K/uL (0.0-1.0)
[2020-03-20 04:43] LABS: ANION GAP 9 (5-15); CALCIUM 9.9 mg/dL (8.4-11.0); CHLORIDE 100 mmol/L (98-107); CREATININE 1.22 mg/dL (0.55-1.30); GLUCOSE 146 mg/dL (70-99); POTASSIUM 4.7 mmol/L (3.5-5.1); SODIUM SERUM 135 mmol/L (136-145); UREA NITROGEN, BLOOD 23 mg/dL (8-21)
[2020-03-20 04:44] LABS: BASOPHILS % (AUTO) 0.3 % (0.0-2.0); EOSINOPHILS % (AUTO) 0.1 % (0.0-4.0); HEMATOCRIT 35.8 % (36-48); HEMOGLOBIN 11.9 g/dL (12.0-16.0); LYMPHOCYTES % (AUTO) 7.7 % (20.5-51.5); MEAN CORPUSCULAR HEMOGLOBIN 30 pg (27-31); MEAN CORPUSCULAR HGB CONC 33 % (32-36); MEAN CORPUSCULAR VOLUME 90 fL (79.0-98.0); MONOCYTES % (AUTO) 2.1 % (1.7-9.3); NEUTROPHILS # (AUTO) 13.1 K/uL (1.8-7.7); NEUTROPHILS % (AUTO) 89.8 % (40.0-70.0); PLATELET COUNT (AUTO) 273 K/uL (130-430); RED CELL DISTRIBUTION WIDTH 15.6 % (9.0-15.0); WHITE BLOOD COUNT (AUTO) 14.5 K/uL (4.8-10.8)
[2020-03-20 04:46] LABS: PROTHROMBIN TIME 9.6 SECS (9.5-12.5)
[2020-03-20 04:49] LABS: ALANINE AMINOTRANSFERASE 16 U/L (12-78); ALBUMIN 3.6 g/dL (3.4-4.8); ASPARTATE AMINOTRANSFERASE 25 U/L (10-37); TOTAL BILIRUBIN 0.7 mg/dL (0.0-1.0)
--- NOTE | 2020-03-20 04:50 | NUR ---
PATIENT RETURNED FROM CT. PLACED ON MONITOR.
--- NOTE | 2020-03-20 05:40 | NUR ---
PT SITTING ON BEDPAN TRYING TO GIVE URINE SAMPLE.
[2020-03-20] MEDS ORDERED: PANTOPRAZOLE SODIUM 40 MG/VIAL (PROTONIX) IVP ONE (05:45)
[2020-03-20 06:04] LABS: BILIRUBIN,URINE NEGATIVE (NEGATIVE); BLOOD, URINE NEGATIVE (NEGATIVE); CLARITY/URINE CLEAR (CLEAR); COLOR,URINE YELLOW (YELLOW); GLUCOSE,URINE NEGATIVE (NEGATIVE); KETONES,URINE NEGATIVE (NEGATIVE); LEUKOCYTE ESTERASE ,URINE 1+ (NEGATIVE); NITRITE, URINE NEGATIVE (NEGATIVE); PROTEIN URINE NEGATIVE (NEGATIVE); UROBILINOGEN,URINE 0.2 (0.2-1.0)
[2020-03-20 06:11] LABS: RBC,URINE 0-3 /HPF (0-3)
[2020-03-20 06:12] LABS: BACTERIA,URINE FEW /HPF (None Seen)
[2020-03-20] MEDS ORDERED: LEVOFLOXACIN 500 MG/D5W 100 ML IV ONE (06:15)
--- NOTE | 2020-03-20 06:26 | NUR ---
DR. PARK AT BEDSIDE EXPLAINING PLAN OF CARE WITH PT.
--- NOTE | 2020-03-20 06:30 | NUR ---
Blood cultures drawn, prior to administration of antibiotic.
--- NOTE | 2020-03-20 07:11 | NUR ---
REPORT GIVEN TO JEOVANNY BILLINGS FOR CONTINUATION OF CARE.
--- NOTE | 2020-03-20 07:55 | NUR ---
Patient given written and verbal discharge instructions and verbalizes understanding. ER MD discussed with patient the results and treatment provided. Patient in stable condition. ID arm band removed. IV catheter removed intact and dressing applied, no active bleeding. Rx of Ciprofloxacin and Protonix given. Patient educated on pain management and to follow up with PMD. Pain Scale 0/10. Opportunity for questions provided and answered. Medication side effect fact sheet provided.
[2020-03-20 08:49] VITALS: BP_SYST 124
== END 2020-03-20 07:55 | disposition home or self-care (01) ==
LOC: SED 03:30
DX: K21.9 Gastro-esophageal reflux disease without esophagitis (principal); N39.0 Urinary tract infection, site not specified; I10 Essential (primary) hypertension; E11.9 Type 2 diabetes mellitus without complications; E07.9 Disorder of thyroid, unspecified; E78.00 Pure hypercholesterolemia, unspecified; Z79.899 Other long term (current) drug therapy; Z88.0 Allergy status to penicillin
CPT/HCPCS: 36415; 71045; 74176; 80053; 81000; 83605; 84484; 85025; 85610; 85730; 87040; 87086; 87186; 93005; 96365; 96375; 99285; C9113; J1885; J1956; J7040

== ENCOUNTER 2020-04-12 12:58 | Emergency (ER) | payer OTHER, MEDICAID ==
[~2020-04-12] VITALS: Ht 152.4 cm; Wt 56.7 kg
[2020-04-12 14:23] VITALS: BP_SYST 123
--- NOTE | 2020-04-12 15:22 | NUR ---
Patient to ER bed 03 to gown for evaluation. Side rails up.
--- NOTE | 2020-04-12 15:25 | NUR ---
ER at bedside examining patient.
--- NOTE | 2020-04-12 15:25 | NUR ---
Pt came to ER for abd pain for the last year. Pt resting in marga, pain in MD ELE to assess.
[2020-04-12] MEDS ORDERED: MAG HYDROX/AL HYDROX/SIMETH 30 ML, DICYCLOMINE HCL 20 MG, LIDOCAINE VISCOUS 2% 15ML (PO... PO ONE ×3 (16:00)
[2020-04-12] MEDS ORDERED: KETOROLAC TROMETHAMINE 60 MG/2 ML VIAL IM ONE (16:00)
--- NOTE | 2020-04-12 16:30 | NUR ---
Pt resting in [facility] medication effective, VSS
[2020-04-12 17:16] VITALS: BP_SYST 123
--- NOTE | 2020-04-12 17:18 | NUR ---
Patient given written and verbal discharge instructions and verbalizes understanding. ER MD discussed with patient the results and treatment provided. Patient in stable condition. ID arm band removed. Rx of Tramadol given. Patient educated on pain management and to follow up with PMD. Pain Scale 2/10 tolerable for pt Opportunity for questions provided and answered. Medication side effect fact sheet provided.
== END 2020-04-12 17:18 | disposition home or self-care (01) ==
LOC: SED 12:58
DX: R10.11 Right upper quadrant pain (principal); I10 Essential (primary) hypertension; E07.9 Disorder of thyroid, unspecified; K21.9 Gastro-esophageal reflux disease without esophagitis; E11.9 Type 2 diabetes mellitus without complications; E78.00 Pure hypercholesterolemia, unspecified; G20 Parkinson's disease; Z87.442 Personal history of urinary calculi; Z85.3 Personal history of malignant neoplasm of breast; Z79.899 Other long term (current) drug therapy; Z88.0 Allergy status to penicillin
CPT/HCPCS: 74018; 96372; 99283; J1885; J2001

== ENCOUNTER 2020-07-05 12:25 | Inpatient (IN) | payer OTHER, MEDICAID, SELFPAY ==
[~2020-07-05] VITALS: Ht 144.8 cm; Wt 54.4 kg
[~2020-07-05 12:25] MED LIST changes: -MECL-110 PO; +MECL-160 PO
[2020-07-05 12:40] VITALS: BP_SYST 134
--- NOTE | 2020-07-05 12:50 | NUR ---
Patient to ER bed 05 to gown for evaluation. Side rails up.
--- NOTE | 2020-07-05 12:52 | NUR ---
Pt brought by son, A&Ox4, pt presents to ER with throat discomfort after eating a soup yesterday, patient states it is uncomfortable to swallow, pt denies N/V, skin pink and warm, cap refill <3, swelling noted on R hand, pt is afebrile, no cough noted, ill cont to monitor.
--- NOTE | 2020-07-05 12:55 | NUR ---
Dr Del Rio evaluating patient at bedside
[2020-07-05] MEDS ORDERED: NACL 0.9% 1,000 ML IV ONE (13:07)
--- NOTE | 2020-07-05 13:25 | NUR ---
Pt off the unit for X-ray
--- NOTE | 2020-07-05 13:45 | NUR ---
Pt returned to unit on stable condition.
--- NOTE | 2020-07-05 13:55 | NUR ---
DR GRACE SPEAKING WITH DR MADRID (GI).
--- NOTE | 2020-07-05 14:10 | NUR ---
Obtained EGD Consent from patient and son of patient at bedside.
[2020-07-05] MEDS ORDERED: FAMO20TA8 PO (14:17)
[2020-07-05] MEDS ORDERED: SERT25TA PO (14:17)
[2020-07-05] MEDS ORDERED: LIP40 PO (14:17)
[2020-07-05] MEDS ORDERED: ACET325T PO (14:17)
[2020-07-05] MEDS ORDERED: LISI10TA5 PO (14:17)
--- NOTE | 2020-07-05 14:18 | NUR ---
Oh santiago in ED - 07/05/20 at 1419 by JULIAN Medication reconciliation completed with information provided by patient's son . Any prior medication reconciliation on file was reviewed and corrected.
--- NOTE | 2020-07-05 14:20 | NUR ---
Medication reconciliation completed with information provided by patient . Any prior medication reconciliation on file was reviewed and corrected.
--- NOTE | 2020-07-05 14:25 | NUR ---
Patient will be admitted to care of [facility]. Admitted to medsurg unit. PT transferred to GI lab by Mandeep UP
[2020-07-05] MEDS ORDERED: ONDANSETRON HCL 4 MG/2 ML VIAL IVP PRN (14:45)
[2020-07-05] MEDS ORDERED: LORazepam 2 MG/ML VIAL IVP PRN (14:45)
[2020-07-05] MEDS ORDERED: ACETAMINOPHEN 325 MG TABLET PO PRN (14:45)
[2020-07-05] MEDS ORDERED: DOCUSATE SODIUM 100 MG CAPSULE PO PRN (14:45)
[2020-07-05] MEDS ORDERED: MUPIROCIN 2% TOPICAL OINTMENT 22 GM NS PRN (14:45)
[2020-07-05] MEDS ORDERED: MAGNESIUM SULFATE 50 ML IV PRN (14:45)
[2020-07-05] MEDS ORDERED: POTASSIUM CHLORIDE 20 MEQ TAB.PRT.SR PO PRN (14:45)
[2020-07-05] MEDS ORDERED: NALOXONE HCL 0.4 MG/ML AMP (NARCAN) IVP PRN ×2 (14:45)
[2020-07-05] MEDS ORDERED: MORPHINE 2 MG/ML INJ. SYRINGE IVP PRN ×2 (14:45)
[2020-07-05] MEDS ORDERED: SIMETHICONE 40 MG/0.6 ML ML ONE (14:55)
[2020-07-05] MEDS ORDERED: MEPERIDINE HCL/PF 100 MG/ML AMP ONE (14:55)
[2020-07-05] MEDS ORDERED: MIDAZOLAM HCL 5 MG/5 ML VIAL ONE (14:56)
[2020-07-05 15:08] LABS: BASOPHILS % (AUTO) 0.5 % (0.0-2.0); EOSINOPHILS % (AUTO) 0.4 % (0.0-4.0); HEMATOCRIT 35.1 % (36-48); HEMOGLOBIN 11.6 g/dL (12.0-16.0); LYMPHOCYTES # (AUTO) 3.2 K/uL (1.0-5.5); LYMPHOCYTES % (AUTO) 36.1 % (20.5-51.5); MEAN CORPUSCULAR HEMOGLOBIN 30 pg (27-31); MEAN CORPUSCULAR HGB CONC 33 % (32-36); MEAN CORPUSCULAR VOLUME 92 fL (79.0-98.0); MONOCYTES # (AUTO) 0.7 K/uL (0.0-1.0); MONOCYTES % (AUTO) 7.7 % (1.7-9.3); NEUTROPHILS # (AUTO) 4.9 K/uL (1.8-7.7); NEUTROPHILS % (AUTO) 55.3 % (40.0-70.0); PLATELET COUNT (AUTO) 241 K/uL (130-430); RED BLOOD CELL COUNT(AUTO) 3.82 MIL/uL (4.2-6.2); RED CELL DISTRIBUTION WIDTH 15.4 % (9.0-15.0)
[2020-07-05 15:32] LABS: ANION GAP 6 (5-15); CALCIUM 9.5 mg/dL (8.4-11.0); CHLORIDE 105 mmol/L (98-107); CREATININE 0.95 mg/dL (0.55-1.30); GLUCOSE 77 mg/dL (70-99); POTASSIUM 4.1 mmol/L (3.5-5.1); SODIUM SERUM 139 mmol/L (136-145); UREA NITROGEN, BLOOD 23 mg/dL (8-21)
[2020-07-05 15:38] LABS: ALANINE AMINOTRANSFERASE 22 U/L (12-78); ALBUMIN 3.7 g/dL (3.4-4.8); ASPARTATE AMINOTRANSFERASE 20 U/L (10-37); TOTAL BILIRUBIN 0.5 mg/dL (0.0-1.0)
[2020-07-05] MEDS ORDERED: PANTOPRAZOLE SODIUM 40 MG/VIAL (PROTONIX) IVP ONE (15:45)
--- NOTE | 2020-07-05 15:53 | NUR ---
ADMISSION NOTE: Received patient from ER via gurney. Patient admitted with diagnosis of Esophogeal foreign body. Patient is awake, alert, oriented X 4. Patient oriented to hospital room, call light, toileting, pain management and safety-teach back done. Patient informed that Milady will be her nurse and that their room number is 101 B. Personal belongings checked and Belongings List documented. Call light within reach.
--- NOTE | 2020-07-05 16:00 | NUR ---
RN ROUNDS: PATIENT IS AWAKE AND ALERT x4 LAYING DOWN IN BED. PATIENT IS TOLERATING OXYGEN ON ROOM AIR WITH NO SIGNS OF DISTRESS OR SHORTNESS OF BREATH NOTED. IV SITE IS PATENT WITH NO SIGNS OF INFILTRATION NOTED. PATIENT IN STABLE CONDITION. SAFETY, FALL, AND ASPIRATION PRECAUTIONS ARE IN PLACE. BED LOCKED IN LOWEST POSITION WITH CALL LIGHT IN REACH. WILL CONTINUE TO MONITOR PATIENT FOR ANY CHANGES.
[2020-07-05 16:40] VITALS: BP_SYST 141
[2020-07-05] MEDS: D5NS 1,000 ML IV SCH (17:29)
--- NOTE | 2020-07-05 18:39 | NUR ---
CLOSING NOTES: PATIENT IS ASLEEP LAYING DOWN IN BED. PATIENT IS TOLERATING OXYGEN ON ROOM AIR WITH NO SIGNS OF DISTRESS OR SHORTNESS OF BREATH NOTED. IV SITE IS PATENT WITH NO SIGNS OF INFILTRATION NOTED AND RUNNING FLUIDS ORDERED. PATIENT IN STABLE CONDITION. SAFETY, FALL, AND ASPIRATION PRECAUTIONS REMAINED IN PLACE THROUGHOUT THE SHIFT. BED LOCKED IN LOWEST POSITION WITH CALL LIGHT IN REACH. WILL ENDORSE PATIENT CARE TO ONCOMING AUTOMOBILE RENTAL CLERK NURSE.
[2020-07-05 19:00] VITALS: BP_SYST 141
[2020-07-05 20:00] VITALS: BP_SYST 141
[2020-07-05] MEDS: HEPARIN SODIUM,PORCINE 5,000 UNITS/ML VIAL SUBCUT SCH (22:28)
[2020-07-06 00:50] VITALS: BP_SYST 155
[2020-07-06 07:38] LABS: BASOPHILS % (AUTO) 0.4 % (0.0-2.0); EOSINOPHILS # (AUTO) 0.1 K/uL (0.0-0.4); EOSINOPHILS % (AUTO) 1.1 % (0.0-4.0); HEMATOCRIT 31.7 % (36-48); HEMOGLOBIN 10.6 g/dL (12.0-16.0); LYMPHOCYTES # (AUTO) 2.5 K/uL (1.0-5.5); LYMPHOCYTES % (AUTO) 30.3 % (20.5-51.5); MEAN CORPUSCULAR HEMOGLOBIN 31 pg (27-31); MEAN CORPUSCULAR HGB CONC 34 % (32-36); MEAN CORPUSCULAR VOLUME 92 fL (79.0-98.0); MONOCYTES # (AUTO) 0.7 K/uL (0.0-1.0); MONOCYTES % (AUTO) 8.1 % (1.7-9.3); NEUTROPHILS # (AUTO) 4.9 K/uL (1.8-7.7); NEUTROPHILS % (AUTO) 60.1 % (40.0-70.0); PLATELET COUNT (AUTO) 232 K/uL (130-430); RED BLOOD CELL COUNT(AUTO) 3.46 MIL/uL (4.2-6.2); RED CELL DISTRIBUTION WIDTH 15.1 % (9.0-15.0); WHITE BLOOD COUNT (AUTO) 8.1 K/uL (4.8-10.8)
[2020-07-06 08:00] VITALS: BP_SYST 181
--- NOTE | 2020-07-06 08:00 | NUR ---
A/Ox4,BP ELEVATED TO 181/78,C/O STOMACH PAIN,IVF CONTINUE INFUSING, HERE AND NOTIFIED OF PT HIGH BP ORDERS RECEIVED AND CARRIED OUT.GIVE PROTONIX IV FOR STOMACH DISCOMFORT PER ORDER.NEEDS ATTENDED,CALL LIGHT & PERSONAL ITEMS WITHIN PT REACH,SAFETY MAINTAINED.CONTINUE TO MONITOR PT.
[2020-07-06 08:14] LABS: CALCIUM 9.1 mg/dL (8.4-11.0); CHLORIDE 107 mmol/L (98-107); CREATININE 0.72 mg/dL (0.55-1.30); GLUCOSE 118 mg/dL (70-99); POTASSIUM 3.7 mmol/L (3.5-5.1); SODIUM SERUM 141 mmol/L (136-145); UREA NITROGEN, BLOOD 20 mg/dL (8-21)
[2020-07-06 08:43] LABS: ANION GAP 7 (5-15)
[2020-07-06] MEDS: PANTOPRAZOLE SODIUM 40 MG/VIAL (PROTONIX) IVP SCH (08:57)
[2020-07-06] MEDS ORDERED: DIATR MEGLU/DIATRIZ SOD 30 ML SOLUTION PO ONE (09:00)
[2020-07-06] MEDS: CARBIDOPA/LEVODOPA 25/100 MG TABLET PO SCH ×3 (09:00→21:09)
[2020-07-06] MEDS: HEPARIN SODIUM,PORCINE 5,000 UNITS/ML VIAL SUBCUT SCH ×2 (09:03→21:10)
--- NOTE | 2020-07-06 10:00 | NUR ---
KEEP PT NPO AND DRINK CONTRAST FOR CT OF ABDOMEN,PT TOLERATED WELL.NO N/V.
--- NOTE | 2020-07-06 12:00 | NUR ---
PT C/O ANXIETY,REQUESTS MEDS FOR ANXIETY,GIVE ATIVAN 1 MG IV PRN ORDER FOR ANXIETY. HOURLY ROUNDS MADE,SAFETY MAINTAINED.
[2020-07-06 12:27] VITALS: BP_SYST 158
[2020-07-06] MEDS: LEVOTHYROXINE SODIUM 0.025 MG TABLET PO SCH (13:33)
[2020-07-06] MEDS: LISINOPRIL 10 MG TABLET (PRINIVIL) PO SCH (13:33)
[2020-07-06] MEDS: FAMOTIDINE 20 MG TABLET PO SCH (13:33)
--- NOTE | 2020-07-06 14:00 | NUR ---
PT BACK FROM CT,NO ACUTE DISTRESS NOTED.ASSISTED PT VOIDED IN BEDPAN,PERICARE PROVIDED AND RENDERED.
[2020-07-06] MEDS: GABAPENTIN 100 MG CAPSULE PO SCH ×3 (15:00→21:09)
--- NOTE | 2020-07-06 15:40 | NUR ---
SS NOTES/DCP: RETARDER OPERATOR was referred by CM to see patient for DCP. Demographic information confirmed. RETARDER OPERATOR met with patient at bedside and was asked to phone son, Neville sanchez @ [phone]. RETARDER OPERATOR spoke with son and stated reason for call. Pt is an 85 y/o female who came in via ED for abd pain and throat issues. Pt lives alone on the 3rd floor at the long term apartment. Pt has access to elevator to get to the apartment. Pt depends on family members for meal prepping and driving to/from MD appointments. Pt is able to feed self, but requires help with bathing and toileting at times. Pt owns and uses a wheelchair, walker and commode. Pt has history of anxiety and has Parkinsons, takes anxiety meds prescribed by PCP. Pt does not have history of substance use/abuse. Pt's source of income is her long-term and children helps out with food purchases. Pt does not have IHSS and does not have a medic-bracelet for emergencies. Pt does not have an advanced directive. Pt has used HH and SNF in the past, unknown name but in [place] on [address]. If SNF and HHS is indicated, family wishes to explore providers in the area. RETARDER OPERATOR provided patient with advanced directive/POLST, outpatient mental health, and IHSS resource. No further SS needs identified but will remain available.
--- NOTE | 2020-07-06 16:00 | NUR ---
VSS,PT SLEEPING WELL IN BED,HOURLY ROUNDS MADE,SAFETY MAINTAINED.
[2020-07-06 16:36] VITALS: BP_SYST 150
[2020-07-06] MEDS ORDERED: METOPROLOL TARTRATE 50 MG TABLET PO SCH (18:00)
--- NOTE | 2020-07-06 18:00 | NUR ---
GIVE PO MEDS AND PT ABLE TO SWALLOW WHOLE PILLS NO PROBLEMS NOTED.CONTINUE IVF INFUSION. CONTINUE TO MONITOR PT.
[2020-07-06] MEDS ORDERED: FLU VACC QS2020-21(65UP)/PF 0.7 ML/SYRINGE I.M. PRN (18:30)
--- NOTE | 2020-07-06 19:30 | NUR ---
OPENING NOTES RECEIVED SBAR REPORT FROM DAY SHIFT RN. PT RESTING IN BED, ALERT & ORIENTED X3. BREATHING EVEN AND UNLABORED TO ROOM AIR. NO SIGNS OF RESPIRATORY DISTRESS NOTED. IV ON LEFT FOREARM INTACT, IVF RUNNING ORDERED RATE. NO SIGNS OF INFILTRATION NOTED. CALL LIGHT WITHIN REACH. BED LOCKED IN LOWEST POSITION. SAFETY AND FALL PRECAUTIONS ARE IN PLACE. WILL CONTINUE TO MONITOR.
[2020-07-06 20:00] VITALS: BP_SYST 155
--- NOTE | 2020-07-06 21:09 | NUR ---
MEDICATION PASS SCHEDULED MEDICATIONS ADMINISTERED ORDERED. DISCUSSED MEDICATION ACTIONS AND POTENTIAL SIDE EFFECTS. PT VERBALIZED UNDERSTANDING. CHEST RISE AND FALL SYMMETRICAL. NO SIGNS OF SHORTNESS OF BREATH NOTED. CALL LIGHT WITHIN REACH. BED ALARM ON, LOCKED IN LOWEST POSITION. SAFETY AND FALL PRECAUTIONS MAINTAINED. WILL CONTINUE TO MONITOR.
[2020-07-06] MEDS: D5NS 1,000 ML IV SCH (21:12)
[2020-07-07] VITALS: BP_SYST 142
--- NOTE | 2020-07-07 00:05 | NUR ---
RN ROUNDS PT SLEEPING. BREATHING EVEN AND UNLABORED TO ROOM AIR. NO S/S OF ACUTE DISTRESS NOTED. IVF RUNNING ORDERED RATE. NO SIGNS OF INFILTRATION NOTED. PT TOLERATING WELL. BED LOCKED IN LOWEST POSITION. SIDE RAILS UP X3. CALL LIGHT WITHIN REACH. SAFETY AND FALL PRECAUTIONS ARE IN PLACE. WILL CONTINUE TO MONITOR.
[2020-07-07] MEDS: D5NS 1,000 ML IV SCH (05:39)
--- NOTE | 2020-07-07 06:30 | NUR ---
CLOSING NOTES PT RESTING IN BED. BREATHING EVEN AND UNLABORED TO ROOM AIR. NO SIGNS OF RESPIRATORY DISTRESS NOTED. IV ON LEFT FOREARM INTACT, IVF RUNNING ORDERED RATE. NO SIGNS OF INFILTRATION NOTED. CALL LIGHT WITHIN REACH. BED LOCKED IN LOWEST POSITION. SAFETY AND FALL PRECAUTIONS ARE IN PLACE. ALL NEEDS ARE MET THROUGHOUT SHIFT. WILL CONTINUE TO MONITOR UNTIL ENDORSE TO DAY SHIFT RN.
[2020-07-07 07:13] LABS: BASOPHILS % (AUTO) 0.3 % (0.0-2.0); EOSINOPHILS # (AUTO) 0.1 K/uL (0.0-0.4); EOSINOPHILS % (AUTO) 0.7 % (0.0-4.0); HEMATOCRIT 30.6 % (36-48); HEMOGLOBIN 10.3 g/dL (12.0-16.0); LYMPHOCYTES # (AUTO) 2.4 K/uL (1.0-5.5); LYMPHOCYTES % (AUTO) 31.6 % (20.5-51.5); MEAN CORPUSCULAR HEMOGLOBIN 31 pg (27-31); MEAN CORPUSCULAR HGB CONC 34 % (32-36); MEAN CORPUSCULAR VOLUME 91 fL (79.0-98.0); MONOCYTES # (AUTO) 0.6 K/uL (0.0-1.0); MONOCYTES % (AUTO) 7.5 % (1.7-9.3); NEUTROPHILS # (AUTO) 4.6 K/uL (1.8-7.7); NEUTROPHILS % (AUTO) 59.9 % (40.0-70.0); PLATELET COUNT (AUTO) 223 K/uL (130-430); RED BLOOD CELL COUNT(AUTO) 3.36 MIL/uL (4.2-6.2); RED CELL DISTRIBUTION WIDTH 15.2 % (9.0-15.0); WHITE BLOOD COUNT (AUTO) 7.6 K/uL (4.8-10.8)
[2020-07-07 07:42] LABS: ANION GAP 7 (5-15); CALCIUM 8.7 mg/dL (8.4-11.0); CHLORIDE 107 mmol/L (98-107); CREATININE 0.75 mg/dL (0.55-1.30); GLUCOSE 120 mg/dL (70-99); POTASSIUM 4.1 mmol/L (3.5-5.1); SODIUM SERUM 141 mmol/L (136-145); UREA NITROGEN, BLOOD 14 mg/dL (8-21)
[2020-07-07] MEDS: GABAPENTIN 100 MG CAPSULE PO SCH ×2 (09:15→14:26)
[2020-07-07] MEDS: PANTOPRAZOLE SODIUM 40 MG/VIAL (PROTONIX) IVP SCH (09:15)
[2020-07-07] MEDS: LISINOPRIL 10 MG TABLET (PRINIVIL) PO SCH (09:16)
[2020-07-07] MEDS: LEVOTHYROXINE SODIUM 0.025 MG TABLET PO SCH (09:17)
[2020-07-07] MEDS: CARBIDOPA/LEVODOPA 25/100 MG TABLET PO SCH ×2 (09:17→14:27)
[2020-07-07] MEDS: HEPARIN SODIUM,PORCINE 5,000 UNITS/ML VIAL SUBCUT SCH (09:23)
[2020-07-07] MEDS: FAMOTIDINE 20 MG TABLET PO SCH (09:24)
--- NOTE | 2020-07-07 09:25 | NUR ---
Nutrition Update Humble Scale 17 noted. Pt admitted for esophageal foreign body. Diet: regular, 2 gm Na, soft BMI: 26 kg/m2 RD to follow per nutrition care standards.
[2020-07-07 11:11] VITALS: BP_SYST 141
[2020-07-07 11:33] VITALS: BP_SYST 156
--- NOTE | 2020-07-07 13:52 | NUR ---
alert, oriented, basic commands of zimbabwean, able to make needs known. Appetite all meals, at least 75-80%, fed self, no problem noted with swallowing. Seen by GI this am, cleared from this point of view. Patient is discharged to home with family, Neville, the son, called and made aware, , will picking crew supervisor the patient after work, expected time at 1700 this evening. Got flu vaccine prior to departure.
[2020-07-07 16:55] VITALS: BP_SYST 141
--- NOTE | 2020-07-13 12:00 | NUR ---
Discharge Follow Up Phone Call Phoned patient, , on 07/11/20 but patient only spoke Singaporean. Patient stated I should phone her son. Phoned Neville, , and left a voicemail. Phoned Neville again today, 07/13/20. Neville stated that patient was doing well. She has a follow up appointment made with her PCP. He had questions about patient's stay and discharge instructions, but called patient's nurse when they got home and got the questions answered. No other questions or concerns.
== END 2020-07-07 17:30 | disposition home or self-care (01) | DRG 395 ==
LOC: SED 12:25 → SMU 14:02
PROVIDERS: ADMIT General Practice; ATTEND General Practice
PROC: 0DB48ZX Excision of Esophagogastric Junction, Via Natural or Artificial Opening Endoscopic, Diagnostic (ICD-10-PCS; principal; 2020-07-05 15:00)
PROC: 0DC48ZZ Extirpation of Matter from Esophagogastric Junction, Via Natural or Artificial Opening Endoscopic (ICD-10-PCS; 2020-07-05 15:00)
PROC: 0D758ZZ Dilation of Esophagus, Via Natural or Artificial Opening Endoscopic (ICD-10-PCS; 2020-07-05 15:00)
DX: T18.128A Food in esophagus causing other injury, initial encounter (principal); X58.XXXA Exposure to other specified factors, initial encounter; K22.2 Esophageal obstruction; I10 Essential (primary) hypertension; G20 Parkinson's disease; E03.9 Hypothyroidism, unspecified; E78.5 Hyperlipidemia, unspecified; K21.9 Gastro-esophageal reflux disease without esophagitis; Z20.828 Contact with and (suspected) exposure to other viral communicable diseases; K44.9 Diaphragmatic hernia without obstruction or gangrene; Y92.89 Other specified places as the place of occurrence of the external cause; Y99.8 Other external cause status; Z85.3 Personal history of malignant neoplasm of breast; Y93.89 Activity, other specified; Z87.442 Personal history of urinary calculi; Z95.1 Presence of aortocoronary bypass graft; Z90.49 Acquired absence of other specified parts of digestive tract
CPT/HCPCS: 36415; 43247; 45380; 74220-TC; 80048; 80053; 83036; 83735-TC; 85025; 88305; 88312; 88313; 96360; 99285; C9113; J1644; J2060; J2175; J2250; J2270; J7042; Q9964; Q9967

== ENCOUNTER 2021-05-30 12:40 | Emergency (ER) | payer OTHER, MEDICAID ==
[~2021-05-30] VITALS: Ht 149.9 cm; Wt 56.2 kg
[~2021-05-30 12:40] MED LIST changes: -ACET167L15 PO; +ACET325T PO; -AMLO2.5T2 PO; -CALC-1067 PO; -CHOL100034 PO; -ESOM40CA PO; +FAMO20TA8 PO; -GLIM2TAB58 PO; +LIP40 PO; -LISI-600 PO; +LISI10TA29 PO; -MECL-160 PO; +SERT25TA PO; -SIMV20TA2 PO; -TAMO20TA4 PO; -VITA1CAP PO
--- NOTE | 2021-05-30 12:45 | NUR ---
Placed in room 07 . Placed on engraving plate maker, blood pressure machine and pulse oximeter. To gown for exam. Side rails up.
--- NOTE | 2021-05-30 12:47 | NUR ---
Pt brought by self , A&Ox4, pt presents to ER with dizziness, N/V x 2 days, also c/o mild R flank pain episodes, skin pink and warm.
[2021-05-30 13:19] VITALS: BP_SYST 147
--- NOTE | 2021-05-30 13:56 | NUR ---
ER at bedside examining patient.
--- NOTE | 2021-05-30 14:17 | NUR ---
Assisted pt to bedpan for urine specimen. Pt tolerated well.
--- NOTE | 2021-05-30 15:00 | NUR ---
Urine collected and sent to lab.
[2021-05-30 15:23] LABS: BILIRUBIN,URINE NEGATIVE (NEGATIVE); BLOOD, URINE NEGATIVE (NEGATIVE); CLARITY/URINE CLEAR (CLEAR); COLOR,URINE YELLOW (YELLOW); GLUCOSE,URINE NEGATIVE (NEGATIVE); KETONES,URINE NEGATIVE (NEGATIVE); LEUKOCYTE ESTERASE ,URINE TRACE (NEGATIVE); NITRITE, URINE NEGATIVE (NEGATIVE); PH,URINE 6.5 (5.0-8.0); PROTEIN URINE TRACE (NEGATIVE); UROBILINOGEN,URINE 0.2 (0.2-1.0)
[2021-05-30 15:29] LABS: BACTERIA,URINE RARE /HPF (None Seen); RBC,URINE 0-3 /HPF (0-3)
[2021-05-30] MEDS ORDERED: DOCUSATE SODIUM 100 MG CAPSULE PO ONE (15:45)
[2021-05-30] MEDS ORDERED: MAGNESIUM CITRATE 300 ML ORAL SOLUTION PO ONE (15:45)
--- NOTE | 2021-05-30 15:54 | NUR ---
Lab at bedside.
[2021-05-30 16:05] LABS: BASOPHILS % (AUTO) 0.4 % (0.0-2.0); EOSINOPHILS % (AUTO) 0.4 % (0.0-4.0); HEMATOCRIT 35.8 % (36-48); LYMPHOCYTES # (AUTO) 2.8 K/uL (1.0-5.5); LYMPHOCYTES % (AUTO) 29.5 % (20.5-51.5); MEAN CORPUSCULAR HEMOGLOBIN 30 pg (27-31); MEAN CORPUSCULAR HGB CONC 34 % (32-36); MEAN CORPUSCULAR VOLUME 90 fL (79.0-98.0); MONOCYTES # (AUTO) 0.7 K/uL (0.0-1.0); MONOCYTES % (AUTO) 7.1 % (1.7-9.3); NEUTROPHILS # (AUTO) 5.9 K/uL (1.8-7.7); NEUTROPHILS % (AUTO) 62.6 % (40.0-70.0); PLATELET COUNT (AUTO) 280 K/uL (130-430); RED BLOOD CELL COUNT(AUTO) 3.97 MIL/uL (4.2-6.2); RED CELL DISTRIBUTION WIDTH 15.1 % (9.0-15.0); WHITE BLOOD COUNT (AUTO) 9.5 K/uL (4.8-10.8)
[2021-05-30] MEDS ORDERED: DOCU-144 PO (16:08)
[2021-05-30] MEDS ORDERED: SENN8.6T19 PO (16:08)
[2021-05-30 16:17] LABS: ANION GAP 9 (5-15); CALCIUM 10.3 mg/dL (8.4-11.0); CHLORIDE 105 mmol/L (98-107); GLUCOSE 97 mg/dL (70-99); POTASSIUM 4.2 mmol/L (3.5-5.1); SODIUM SERUM 142 mmol/L (136-145); UREA NITROGEN, BLOOD 19 mg/dL (8-21)
[2021-05-30 16:32] LABS: ALANINE AMINOTRANSFERASE 8 U/L (12-78); ALBUMIN 3.6 g/dL (3.4-4.8); ASPARTATE AMINOTRANSFERASE 25 U/L (10-37); TOTAL BILIRUBIN 0.5 mg/dL (0.0-1.0)
--- NOTE | 2021-05-30 16:49 | NUR ---
Pt resting in gurney with son at bedside. No distress noted at this time. Side rails up attached to monitor vital signs holding.
[2021-05-30 17:32] VITALS: BP_SYST 147
--- NOTE | 2021-05-30 17:33 | NUR ---
Patient given written and verbal discharge instructions and verbalizes understanding. ER MD discussed with patient the results and treatment provided. Patient in stable condition. ID arm band removed. Rx of Senna and colace given. Patient educated on pain management and to follow up with PMD. Pain Scale 0/10. Opportunity for questions provided and answered. Medication side effect fact sheet provided.
== END 2021-05-30 17:33 | disposition home or self-care (01) ==
LOC: SED 12:40
DX: R55 Syncope and collapse (principal); K59.00 Constipation, unspecified; E11.9 Type 2 diabetes mellitus without complications; I10 Essential (primary) hypertension; K21.9 Gastro-esophageal reflux disease without esophagitis; E78.00 Pure hypercholesterolemia, unspecified; Z88.0 Allergy status to penicillin; Z79.899 Other long term (current) drug therapy
CPT/HCPCS: 36415; 80053; 81000; 82962; 84484; 85025; 93005; 99284

== ENCOUNTER 2021-05-31 09:42 | Emergency (ER) | payer OTHER, MEDICAID ==
[~2021-05-31] VITALS: Ht 149.9 cm; Wt 67.6 kg
[~2021-05-31 09:42] MED LIST changes: +DOCU-144 PO; +SENN8.6T19 PO
[2021-05-31 10:02] VITALS: BP_SYST 172
[2021-05-31] MEDS ORDERED: NACL 0.9% 1,000 ML IV ONE (10:15)
[2021-05-31 10:30] LABS: BASOPHILS # (AUTO) 0.1 K/uL (0.0-0.2); BASOPHILS % (AUTO) 0.6 % (0.0-2.0); EOSINOPHILS % (AUTO) 0.2 % (0.0-4.0); HEMATOCRIT 35.7 % (36-48); HEMOGLOBIN 12.1 g/dL (12.0-16.0); LYMPHOCYTES # (AUTO) 2.4 K/uL (1.0-5.5); LYMPHOCYTES % (AUTO) 25.5 % (20.5-51.5); MEAN CORPUSCULAR HEMOGLOBIN 31 pg (27-31); MEAN CORPUSCULAR HGB CONC 34 % (32-36); MEAN CORPUSCULAR VOLUME 91 fL (79.0-98.0); MONOCYTES # (AUTO) 0.7 K/uL (0.0-1.0); MONOCYTES % (AUTO) 7.1 % (1.7-9.3); NEUTROPHILS # (AUTO) 6.2 K/uL (1.8-7.7); NEUTROPHILS % (AUTO) 66.6 % (40.0-70.0); PLATELET COUNT (AUTO) 279 K/uL (130-430); RED BLOOD CELL COUNT(AUTO) 3.94 MIL/uL (4.2-6.2); RED CELL DISTRIBUTION WIDTH 15.7 % (9.0-15.0); WHITE BLOOD COUNT (AUTO) 9.4 K/uL (4.8-10.8)
[2021-05-31 10:40] LABS: ANION GAP 10 (5-15); CALCIUM 10.8 mg/dL (8.4-11.0); CHLORIDE 105 mmol/L (98-107); CREATININE 0.98 mg/dL (0.55-1.30); GLUCOSE 115 mg/dL (70-99); POTASSIUM 4.5 mmol/L (3.5-5.1); SODIUM SERUM 141 mmol/L (136-145); UREA NITROGEN, BLOOD 25 mg/dL (8-21)
[2021-05-31 10:46] LABS: ALANINE AMINOTRANSFERASE 40 U/L (12-78); ALBUMIN 3.9 g/dL (3.4-4.8); ASPARTATE AMINOTRANSFERASE 37 U/L (10-37); LIPASE 308 U/L (73-393); TOTAL BILIRUBIN 0.3 mg/dL (0.0-1.0)
[2021-05-31 12:48] LABS: BILIRUBIN,URINE NEGATIVE (NEGATIVE); BLOOD, URINE NEGATIVE (NEGATIVE); CLARITY/URINE CLEAR (CLEAR); COLOR,URINE YELLOW (YELLOW); GLUCOSE,URINE NEGATIVE (NEGATIVE); KETONES,URINE NEGATIVE (NEGATIVE); LEUKOCYTE ESTERASE ,URINE NEGATIVE (NEGATIVE); NITRITE, URINE NEGATIVE (NEGATIVE); PH,URINE 6.5 (5.0-8.0); PROTEIN URINE NEGATIVE (NEGATIVE); UROBILINOGEN,URINE 0.2 (0.2-1.0)
[2021-05-31 14:13] VITALS: BP_SYST 164
== END 2021-05-31 14:12 | disposition home or self-care (01) ==
LOC: SED 09:42
DX: E86.0 Dehydration (principal); R19.7 Diarrhea, unspecified; E11.9 Type 2 diabetes mellitus without complications; I10 Essential (primary) hypertension; K21.9 Gastro-esophageal reflux disease without esophagitis; E78.00 Pure hypercholesterolemia, unspecified; Z88.0 Allergy status to penicillin; Z79.899 Other long term (current) drug therapy
CPT/HCPCS: 36415; 80053; 81003; 83690; 85025; 96360; 99283; J7030

== ENCOUNTER 2021-12-03 13:06 | Emergency (ER) | payer OTHER, MEDICAID ==
[~2021-12-03] VITALS: Ht 160 cm; Wt 59.0 kg
[2021-12-03 13:25] VITALS: BP_SYST 152
[2021-12-03 15:51] LABS: ANION GAP 7 (5-15); CALCIUM 10.6 mg/dL (8.4-11.0); CHLORIDE 104 mmol/L (98-107); CREATININE 0.95 mg/dL (0.55-1.30); GLUCOSE 108 mg/dL (70-99); POTASSIUM 4.6 mmol/L (3.5-5.1); SODIUM SERUM 139 mmol/L (136-145); UREA NITROGEN, BLOOD 17 mg/dL (8-21)
[2021-12-03 15:57] LABS: BASOPHILS % (AUTO) 0.4 % (0.0-2.0); EOSINOPHILS # (AUTO) 0.1 K/uL (0.0-0.4); EOSINOPHILS % (AUTO) 1.2 % (0.0-4.0); HEMATOCRIT 34.6 % (36-48); HEMOGLOBIN 11.5 g/dL (12.0-16.0); LYMPHOCYTES # (AUTO) 2.5 K/uL (1.0-5.5); LYMPHOCYTES % (AUTO) 28.3 % (20.5-51.5); MEAN CORPUSCULAR HEMOGLOBIN 30 pg (27-31); MEAN CORPUSCULAR HGB CONC 33 % (32-36); MEAN CORPUSCULAR VOLUME 90 fL (79.0-98.0); MONOCYTES # (AUTO) 0.7 K/uL (0.0-1.0); MONOCYTES % (AUTO) 7.3 % (1.7-9.3); NEUTROPHILS # (AUTO) 5.6 K/uL (1.8-7.7); NEUTROPHILS % (AUTO) 62.8 % (40.0-70.0); PLATELET COUNT (AUTO) 257 K/uL (130-430); RED BLOOD CELL COUNT(AUTO) 3.86 MIL/uL (4.2-6.2); WHITE BLOOD COUNT (AUTO) 8.9 K/uL (4.8-10.8)
[2021-12-03 16:06] LABS: ALANINE AMINOTRANSFERASE 22 U/L (12-78); ALBUMIN 3.5 g/dL (3.4-4.8); ASPARTATE AMINOTRANSFERASE 18 U/L (10-37); LIPASE 126 U/L (73-393); TOTAL BILIRUBIN 0.2 mg/dL (0.0-1.0)
[2021-12-03 16:33] LABS: BILIRUBIN,URINE NEGATIVE (NEGATIVE); BLOOD, URINE NEGATIVE (NEGATIVE); CLARITY/URINE SL CLOUDY (CLEAR); COLOR,URINE YELLOW (YELLOW); GLUCOSE,URINE NEGATIVE (NEGATIVE); KETONES,URINE NEGATIVE (NEGATIVE); LEUKOCYTE ESTERASE ,URINE 1+ (NEGATIVE); NITRITE, URINE NEGATIVE (NEGATIVE); PROTEIN URINE NEGATIVE (NEGATIVE); UROBILINOGEN,URINE 0.2 (0.2-1.0)
[2021-12-03 17:04] LABS: BACTERIA,URINE MODERATE /HPF (None Seen); HYALINE CASTS, URINE 0-10 /LPF (None Seen); MUCUS,URINE 2+ /LPF (None Seen); RBC,URINE 0-3 /HPF (0-3); YEAST,URINE Few /HPF (None Seen)
[2021-12-03] MEDS ORDERED: POLY17PO4 PO (17:16)
[2021-12-03] MEDS ORDERED: NITR-85 PO (17:16)
[2021-12-03 17:23] VITALS: BP_SYST 144
== END 2021-12-03 17:23 | disposition home or self-care (01) ==
LOC: SED 13:06
DX: N39.0 Urinary tract infection, site not specified (principal); K59.00 Constipation, unspecified; I10 Essential (primary) hypertension; K21.9 Gastro-esophageal reflux disease without esophagitis; J44.9 Chronic obstructive pulmonary disease, unspecified; E78.5 Hyperlipidemia, unspecified; G20 Parkinson's disease; F02.80 Dementia in other diseases classified elsewhere, unspecified severity, without behavioral disturbance, psychotic disturbance, mood disturbance, and anxiety; Z95.0 Presence of cardiac pacemaker; Z85.3 Personal history of malignant neoplasm of breast; Z86.73 Personal history of transient ischemic attack (TIA), and cerebral infarction without residual deficits; Z87.442 Personal history of urinary calculi
CPT/HCPCS: 36415; 76376; 80053; 81000; 83690; 84484; 85025; 87086; 93005; 99285

== ENCOUNTER 2022-01-02 17:45 | Emergency (ER) | payer OTHER, MEDICAID ==
[~2022-01-02] VITALS: Ht 149.9 cm; Wt 56.2 kg
[~2022-01-02 17:45] MED LIST changes: +NITR-85 PO; +POLY17PO4 PO
--- NOTE | 2022-01-02 17:50 | NUR ---
Patient triaged and placed in waiting room. VSS and patient appears in no acute distress at this time. Accompanied by son , awaiting available bed, and MD notified of need for MSE.
--- NOTE | 2022-01-02 17:52 | NUR ---
Pt brought by son , Elmer&Ox4, pt presents to ER with dizziness, abd pain and nausea since this am, pt afebrile, denies diarrhea or constipation, skin pink and warm, cap refill <3, VSS, respirations even and unlabored, will cont to monitor.
[2022-01-02 17:55] VITALS: BP_SYST 188
[2022-01-02 19:33] LABS: ANION GAP 8 (5-15); CALCIUM 10.7 mg/dL (8.4-11.0); CHLORIDE 104 mmol/L (98-107); CREATININE 0.92 mg/dL (0.55-1.30); GLUCOSE 113 mg/dL (70-99); POTASSIUM 4.4 mmol/L (3.5-5.1); SODIUM SERUM 138 mmol/L (136-145); UREA NITROGEN, BLOOD 22 mg/dL (8-21)
[2022-01-02 19:34] LABS: BASOPHILS % (AUTO) 0.4 % (0.0-2.0); EOSINOPHILS % (AUTO) 0.6 % (0.0-4.0); HEMATOCRIT 35.6 % (36-48); HEMOGLOBIN 11.8 g/dL (12.0-16.0); LYMPHOCYTES % (AUTO) 27.5 % (20.5-51.5); MEAN CORPUSCULAR HEMOGLOBIN 30 pg (27-31); MEAN CORPUSCULAR HGB CONC 33 % (32-36); MEAN CORPUSCULAR VOLUME 90 fL (79.0-98.0); MONOCYTES # (AUTO) 0.5 K/uL (0.0-1.0); MONOCYTES % (AUTO) 6.2 % (1.7-9.3); NEUTROPHILS # (AUTO) 4.8 K/uL (1.8-7.7); NEUTROPHILS % (AUTO) 65.3 % (40.0-70.0); PLATELET COUNT (AUTO) 279 K/uL (130-430); RED BLOOD CELL COUNT(AUTO) 3.98 MIL/uL (4.2-6.2); WHITE BLOOD COUNT (AUTO) 7.4 K/uL (4.8-10.8)
[2022-01-02 19:44] LABS: ALANINE AMINOTRANSFERASE 21 U/L (12-78); ALBUMIN 3.8 g/dL (3.4-4.8); ASPARTATE AMINOTRANSFERASE 23 U/L (10-37); TOTAL BILIRUBIN 0.1 mg/dL (0.0-1.0)
--- NOTE | 2022-01-02 20:04 | NUR ---
Placed in room 7 . Placed on supervisor aluminum boat assembly, blood pressure machine and pulse oximeter. To gown for exam. Side rails up. Report given to Fabiana UP by Love UP.
--- NOTE | 2022-01-02 20:16 | NUR ---
Phi Sabillon swab collected and sent to lab. Addendum: 01/02/22 at 2049 by [email or web address] JEOVANNY Mckeon
[2022-01-02] MEDS ORDERED: NACL 0.9% 500 ML IV ONE (20:30)
[2022-01-02] MEDS ORDERED: ONDA-8 TL (21:26)
[2022-01-02 22:08] VITALS: BP_SYST 140
--- NOTE | 2022-01-02 22:10 | NUR ---
Patient given written and verbal discharge instructions and verbalizes understanding. ER MD Muro discussed with patient the results and treatment provided. Patient in stable condition. ID arm band removed. IV catheter removed intact and dressing applied, no active bleeding. Rx of Zofran sent to pharmacy of choice. Patient educated on pain management and to follow up with PMD. Pain Scale 0/10. Opportunity for questions provided and answered. Medication side effect fact sheet provided.
== END 2022-01-02 22:08 | disposition home or self-care (01) ==
LOC: SED 17:45
DX: R42 Dizziness and giddiness (principal); R55 Syncope and collapse; R11.0 Nausea; I10 Essential (primary) hypertension; E11.9 Type 2 diabetes mellitus without complications; K21.9 Gastro-esophageal reflux disease without esophagitis; Z48.3 Aftercare following surgery for neoplasm; Z88.0 Allergy status to penicillin; Z20.822 Contact with and (suspected) exposure to COVID-19
CPT/HCPCS: 36415; 70450-TC; 76376; 80053; 83605; 84484; 85025; 87040; 93005; 99284

== ENCOUNTER 2022-03-05 12:51 | Inpatient (IN) | payer OTHER, MEDICAID ==
[~2022-03-05] VITALS: Ht 157.5 cm; Wt 57.6 kg
[~2022-03-05 12:51] MED LIST changes: +ONDA-8 TL
[2022-03-05 13:15] VITALS: BP_SYST 177
--- NOTE | 2022-03-05 13:20 | NUR ---
Patient to ER bed 5 to gown for evaluation. Side rails up. Report given to myself Mandy UP.
--- NOTE | 2022-03-05 13:21 | NUR ---
Pt coming from home using assistive device (wheelchair) accompanied by son. Pt c/o generalized weakness and lack of appetite. Visible yellow complexion of skin. Pt rates body pain 11/29. A&Ox4. Skin intact. Has hx of Parkinsons, DM, HTN, and Arthiritis. Allergic to Penicillin. VSS. No sob. No chest pain and denies n/v. Bed in lowest position.
--- NOTE | 2022-03-05 13:21 | NUR ---
ER at bedside examining patient.
--- NOTE | 2022-03-05 13:32 | NUR ---
Dr. Olivo called for admitting orders. Read back done and orders have been placed.
--- NOTE | 2022-03-05 13:33 | NUR ---
Admit bed requested Patient will be admitted to care of . Admitted to MedSurg unit. Diagnosis Abdominal Inpatient (Yes or No) Yes Observation (Yes or No) No Orientation concerns or request close to nursing station (Yes or No) No Covid Status PENDING On vent or bipap No Isolation requirements No Needs a sitter No From Home (Yes or if No enter name of facility) Yes Requires Dialysis (Yes or No) No Med Rec Completed (Yes of No) Yes
--- NOTE | 2022-03-05 13:33 | NUR ---
chemical production technician at bedside.
--- NOTE | 2022-03-05 13:34 | NUR ---
EKG performed at by Katie UP. Physician given copy of EKG for review.
--- NOTE | 2022-03-05 13:38 | NUR ---
Covid swab done and sent to lab.
[2022-03-05] MEDS ORDERED: D5/0.45 NS 1,000 ML IV ONE (13:45)
--- NOTE | 2022-03-05 13:51 | NUR ---
Patient transported to radiology via gurney, accompanied by .
[2022-03-05 13:53] LABS: BASOPHILS # (AUTO) 0.1 K/uL (0.0-0.2); BASOPHILS % (AUTO) 0.6 % (0.0-2.0); EOSINOPHILS # (AUTO) 0.1 K/uL (0.0-0.4); EOSINOPHILS % (AUTO) 0.8 % (0.0-4.0); HEMATOCRIT 33.3 % (36-48); HEMOGLOBIN 11.5 g/dL (12.0-16.0); LYMPHOCYTES # (AUTO) 1.1 K/uL (1.0-5.5); LYMPHOCYTES % (AUTO) 12.4 % (20.5-51.5); MEAN CORPUSCULAR HEMOGLOBIN 30 pg (27-31); MEAN CORPUSCULAR HGB CONC 35 % (32-36); MEAN CORPUSCULAR VOLUME 87 fL (79.0-98.0); MONOCYTES # (AUTO) 0.4 K/uL (0.0-1.0); MONOCYTES % (AUTO) 4.2 % (1.7-9.3); NEUTROPHILS # (AUTO) 6.9 K/uL (1.8-7.7); PLATELET COUNT (AUTO) 293 K/uL (130-430); RED BLOOD CELL COUNT(AUTO) 3.82 MIL/uL (4.2-6.2); RED CELL DISTRIBUTION WIDTH 17.5 % (9.0-15.0); WHITE BLOOD COUNT (AUTO) 8.5 K/uL (4.8-10.8)
[2022-03-05 14:00] LABS: ANION GAP 11 (5-15); CALCIUM 11.1 mg/dL (8.4-11.0); CHLORIDE 105 mmol/L (98-107); CREATININE 1.26 mg/dL (0.55-1.30); GLUCOSE 91 mg/dL (70-99); POTASSIUM 3.8 mmol/L (3.5-5.1); SODIUM SERUM 139 mmol/L (136-145); UREA NITROGEN, BLOOD 37 mg/dL (8-21)
[2022-03-05] MEDS ORDERED: SERT-436 PO (14:03)
[2022-03-05] MEDS ORDERED: METO-542 PO (14:03)
[2022-03-05] MEDS ORDERED: DICL1KIT TP (14:03)
[2022-03-05] MEDS ORDERED: LINA145C PO (14:03)
[2022-03-05] MEDS ORDERED: LEVO25CA4 PO (14:03)
[2022-03-05] MEDS ORDERED: OMEP40CA20 PO (14:03)
[2022-03-05] MEDS ORDERED: LORA0.5T PO (14:03)
[2022-03-05] MEDS ORDERED: NEU100 PO (14:03)
[2022-03-05] MEDS ORDERED: LIP40 PO (14:03)
[2022-03-05] MEDS ORDERED: CARB1TAB21 PO (14:03)
[2022-03-05] MEDS ORDERED: LISI10TA PO (14:03)
[2022-03-05] MEDS ORDERED: TRAM50TA2 PO (14:03)
[2022-03-05] MEDS ORDERED: ACET-2634 PO (14:03)
--- NOTE | 2022-03-05 14:11 | NUR ---
Medication reconciliation completed with information provided by son. Any prior medication reconciliation on file was reviewed and corrected.
--- NOTE | 2022-03-05 14:13 | NUR ---
# 24 gauge angiocath placed to left forearm. Use of asceptic technique. Opsite placed over site. Blood return noted. Flushed with 10 cc of normal saline. No evidence of infiltration noted. Patient tolerated well.
--- NOTE | 2022-03-05 14:15 | NUR ---
Personal Belonging List Completed
--- NOTE | 2022-03-05 14:22 | NUR ---
Patient will be admitted to care of JEOVANNY Shi. Admitted to MedSurg unit. Will go to room 122A. Belongings list completed. Complete and up to date summary report printed. SBAR report to be given at bedside with opportunity for questions.
[2022-03-05 14:27] LABS: ALANINE AMINOTRANSFERASE 78 U/L (12-78); ALBUMIN 2.6 g/dL (3.4-4.8); ASPARTATE AMINOTRANSFERASE 579 U/L (10-37); LIPASE 208 U/L (73-393)
[2022-03-05 14:30] VITALS: BP_SYST 153
--- NOTE | 2022-03-05 14:30 | NUR ---
ADMISSION NOTE Received patient from ER via gurney. Patient admitted with diagnosis of abdominal pain. Patient is awake, alert, oriented X 4. Patient oriented to hospital room, call light, toileting, pain management and safety-teach back done. Patient informed that their room number is 106B. Personal belongings checked and Belongings List documented. Call light within reach.
--- NOTE | 2022-03-05 19:32 | NUR ---
CLOSING NOTES: Patient resting in bed. No s/s of acute distress. IV infusing well. Bed locked, alarm on and in lowest position. Fall and safety measures reinforced. Call light within reach. Needs met throughout shift. Endorsed to shift commander RN.
[2022-03-06 01:38] VITALS: BP_SYST 186
--- NOTE | 2022-03-06 07:45 | NUR ---
received patient from pm nurse, sleeping with no outward signs of pain or discomfort, will assume all care of patient at this time
--- NOTE | 2022-03-06 08:15 | NUR ---
CONSULTATION PAGED REASON FOR CONSULTATION:JAUNDICE WAS CONSULT CALLED?Y -PERSON WHO WAS NOTIFIED:MINH (AROLDO SAM PATRICK INDU[employer]Y SEGMENT SPECIALIST) CONSULTING PHYSICIAN:DOLLY JENSEN INSIDE PLANT SUPERVISOR SPECIALTY:GI INSIDE PLANT SUPERVISOR PHONE NUMBER:[phone] REQUESTING PHYSICIAN:JANE SKINNER
[2022-03-06 08:18] LABS: ANION GAP 13 (5-15); CHLORIDE 104 mmol/L (98-107); CREATININE 1.01 mg/dL (0.55-1.30); GLUCOSE 117 mg/dL (70-99); POTASSIUM 3.4 mmol/L (3.5-5.1); SODIUM SERUM 137 mmol/L (136-145); UREA NITROGEN, BLOOD 29 mg/dL (8-21)
[2022-03-06 08:32] LABS: ALBUMIN 2.4 g/dL (3.4-4.8); ASPARTATE AMINOTRANSFERASE 658 U/L (10-37); TOTAL BILIRUBIN 7.9 mg/dL (0.0-1.0)
[2022-03-06 08:38] LABS: ALANINE AMINOTRANSFERASE 300 U/L (12-78)
[2022-03-06 08:57] LABS: BASOPHILS % (AUTO) 0.5 % (0.0-2.0); EOSINOPHILS # (AUTO) 0.1 K/uL (0.0-0.4); EOSINOPHILS % (AUTO) 1.3 % (0.0-4.0); HEMATOCRIT 31.7 % (36-48); HEMOGLOBIN 10.7 g/dL (12.0-16.0); LYMPHOCYTES # (AUTO) 1.3 K/uL (1.0-5.5); LYMPHOCYTES % (AUTO) 14.3 % (20.5-51.5); MEAN CORPUSCULAR HEMOGLOBIN 29 pg (27-31); MEAN CORPUSCULAR HGB CONC 34 % (32-36); MEAN CORPUSCULAR VOLUME 87 fL (79.0-98.0); MONOCYTES # (AUTO) 0.4 K/uL (0.0-1.0); MONOCYTES % (AUTO) 4.4 % (1.7-9.3); NEUTROPHILS # (AUTO) 6.9 K/uL (1.8-7.7); NEUTROPHILS % (AUTO) 79.5 % (40.0-70.0); PLATELET COUNT (AUTO) 262 K/uL (130-430); RED BLOOD CELL COUNT(AUTO) 3.66 MIL/uL (4.2-6.2); RED CELL DISTRIBUTION WIDTH 17.1 % (9.0-15.0); WHITE BLOOD COUNT (AUTO) 8.7 K/uL (4.8-10.8)
[2022-03-06] MEDS ORDERED: CARBIDOPA/LEVODOPA 25/100 MG TABLET PO SCH (09:00)
[2022-03-06] MEDS ORDERED: LEVOTHYROXINE SODIUM 0.025 MG TABLET PO SCH ×2 (09:00→12:21)
[2022-03-06] MEDS ORDERED: PANTOPRAZOLE SODIUM 40 MG/VIAL (PROTONIX) IVP ONE (09:45)
[2022-03-06] MEDS: CARBIDOPA/LEVODOPA 25/100 MG TABLET PO SCH ×3 (09:54→21:50)
[2022-03-06] MEDS: D5NS 1,000 ML IV SCH ×2 (09:55→21:35)
[2022-03-06 11:31] VITALS: BP_SYST 151
[2022-03-06] MEDS: MORPHINE 4 MG INJ. 4 MG/ML VIAL IVP PRN (12:33)
--- NOTE | 2022-03-06 12:45 | NUR ---
patient c/o 03/31 generalized pain, prn Morphine administered per emar
[2022-03-06] MEDS ORDERED: METOPROLOL SUCCINATE 50 MG TAB.SR.24H (TOPROL XL) PO SCH (18:00)
[2022-03-06] MEDS ORDERED: SERTRALINE HCL 50 MG TABLET PO SCH (18:00)
[2022-03-06] MEDS: SERTRALINE HCL 50 MG TABLET PO SCH (18:37)
[2022-03-06] MEDS: METOPROLOL TARTRATE 50 MG TABLET PO SCH (18:37)
[2022-03-06 20:00] VITALS: BP_SYST 144
[2022-03-07 01:20] VITALS: BP_SYST 141
[2022-03-07] MEDS: D5NS 1,000 ML IV SCH ×2 (02:56→17:35)
[2022-03-07] MEDS: LEVOTHYROXINE SODIUM 0.025 MG TABLET PO SCH (06:09)
[2022-03-07 07:36] LABS: INR 1.6 (0.8-1.2); PROTHROMBIN TIME 16.5 SECS (9.5-12.5)
[2022-03-07 08:00] LABS: BILIRUBIN,DIRECT 6.9 mg/dL (0.0-0.3)
[2022-03-07 08:03] VITALS: BP_SYST 189
[2022-03-07 08:08] LABS: TOTAL BILIRUBIN 7.5 mg/dL (0.0-1.0)
[2022-03-07 09:28] VITALS: BP_SYST 177
[2022-03-07] MEDS: PANTOPRAZOLE SODIUM 40 MG/VIAL (PROTONIX) IVP SCH (09:34)
[2022-03-07] MEDS: CARBIDOPA/LEVODOPA 25/100 MG TABLET PO SCH ×3 (09:34→21:55)
[2022-03-07] MEDS ORDERED: NALOXONE HCL 0.4 MG/ML AMP (NARCAN) IVP PRN (09:45)
[2022-03-07 12:37] VITALS: BP_SYST 167
[2022-03-07] MEDS: MORPHINE 2 MG/ML INJ. SYRINGE IVP PRN (15:25)
[2022-03-07 16:51] VITALS: BP_SYST 153
[2022-03-07] MEDS: SERTRALINE HCL 50 MG TABLET PO SCH (17:37)
[2022-03-07] MEDS: METOPROLOL TARTRATE 50 MG TABLET PO SCH (17:37)
--- NOTE | 2022-03-07 18:01 | NUR ---
ATTENDING MD DR PAT WAS CALLED, RE: MED FOR ANXIETY. SPOKE TO
[2022-03-07] MEDS ORDERED: LORazepam 1 MG TABLET PO PRN (18:15)
--- NOTE | 2022-03-07 19:40 | NUR ---
PT ENDORSED TO NIGHT NURSE JAQUELINE, PT HAS BEEN STABLE, STILL C/O PAIN WITH GOOD RELIEF FROM MORPHINE, PT STILL NOT EATING WELL. GOT AND ORDER FOR ATIVAN.
[2022-03-07 23:04] VITALS: BP_SYST 150
[2022-03-08] VITALS (7 sets, daily range): BP systolic 145–189
[2022-03-08] MEDS: MORPHINE 2 MG/ML INJ. SYRINGE IVP PRN ×3 (02:31→22:13)
[2022-03-08] MEDS: LEVOTHYROXINE SODIUM 0.025 MG TABLET PO SCH (06:14)
[2022-03-08 07:36] LABS: BASOPHILS % (AUTO) 0.2 % (0.0-2.0); EOSINOPHILS % (AUTO) 0.5 % (0.0-4.0); LYMPHOCYTES # (AUTO) 1.2 K/uL (1.0-5.5); LYMPHOCYTES % (AUTO) 13.2 % (20.5-51.5); MEAN CORPUSCULAR HEMOGLOBIN 30 pg (27-31); MEAN CORPUSCULAR HGB CONC 35 % (32-36); MEAN CORPUSCULAR VOLUME 85 fL (79.0-98.0); MONOCYTES # (AUTO) 0.3 K/uL (0.0-1.0); MONOCYTES % (AUTO) 3.3 % (1.7-9.3); NEUTROPHILS # (AUTO) 7.6 K/uL (1.8-7.7); NEUTROPHILS % (AUTO) 82.8 % (40.0-70.0); PLATELET COUNT (AUTO) 226 K/uL (130-430); RED CELL DISTRIBUTION WIDTH 17.1 % (9.0-15.0); WHITE BLOOD COUNT (AUTO) 9.1 K/uL (4.8-10.8)
[2022-03-08 08:48] LABS: ALANINE AMINOTRANSFERASE 71 U/L (12-78); ALBUMIN 1.7 g/dL (3.4-4.8); ANION GAP 9 (5-15); ASPARTATE AMINOTRANSFERASE 564 U/L (10-37); CALCIUM 8.2 mg/dL (8.4-11.0); CHLORIDE 106 mmol/L (98-107); CREATININE 0.97 mg/dL (0.55-1.30); GLUCOSE 207 mg/dL (70-99); SODIUM SERUM 136 mmol/L (136-145); UREA NITROGEN, BLOOD 14 mg/dL (8-21)
[2022-03-08] MEDS ORDERED: MILK OF MAGNESIA 30 ML UDC PO ONE (09:00)
[2022-03-08] MEDS ORDERED: DOCUSATE SODIUM 100 MG CAPSULE PO PRN (09:00)
[2022-03-08 09:46] LABS: POTASSIUM 2.5 mmol/L (3.5-5.1)
[2022-03-08] MEDS: CARBIDOPA/LEVODOPA 25/100 MG TABLET PO SCH ×3 (09:46→21:08)
[2022-03-08] MEDS: PANTOPRAZOLE SODIUM 40 MG/VIAL (PROTONIX) IVP SCH (09:46)
--- NOTE | 2022-03-08 10:00 | NUR ---
NURSE LEFT MESSAGE WITH MD. ON CRITICAL OF OF POTASSIUM OF 2.5. PATEINT EDUCATED ON SIGNS OF SYMPTOMS OF HYPOKALEMIA. PATIENT HAS NO COMPLAINTS AT THE MOMENT.
[2022-03-08] MEDS ORDERED: KCL 40 mEq in 100 mL (PREMIX) 100 ML IV ONE (11:15)
[2022-03-08] MEDS ORDERED: POTASSIUM CHLORIDE 20 MEQ/PKT PACKET PO ONE (11:15)
[2022-03-08] MEDS: KCL 20 mEq in 100 mL (PREMIX) 100 ML IV SCH ×3 (12:46→18:25)
[2022-03-08] MEDS: D5NS 1,000 ML IV SCH (13:35)
[2022-03-08] MEDS: METOPROLOL TARTRATE 50 MG TABLET PO SCH (18:10)
[2022-03-08] MEDS: SERTRALINE HCL 50 MG TABLET PO SCH (18:11)
[2022-03-08] MEDS: hydrALAZINE HCL 20 MG/ML VIAL IVP PRN (21:11)
[2022-03-08 22:48] LABS: ANION GAP 7 (5-15); CALCIUM 8.4 mg/dL (8.4-11.0); CHLORIDE 107 mmol/L (98-107); CREATININE 0.85 mg/dL (0.55-1.30); GLUCOSE 284 mg/dL (70-99); POTASSIUM 3.6 mmol/L (3.5-5.1); SODIUM SERUM 133 mmol/L (136-145); UREA NITROGEN, BLOOD 12 mg/dL (8-21)
[2022-03-09 00:50] VITALS: BP_SYST 139
[2022-03-09] MEDS: D5NS 1,000 ML IV SCH ×2 (05:04→16:15)
[2022-03-09] MEDS: LEVOTHYROXINE SODIUM 0.025 MG TABLET PO SCH (06:09)
[2022-03-09 07:24] LABS: ALBUMIN 1.6 g/dL (3.4-4.8); BILIRUBIN,DIRECT 7.4 mg/dL (0.0-0.3); TOTAL BILIRUBIN 8.4 mg/dL (0.0-1.0)
[2022-03-09] MEDS: PANTOPRAZOLE SODIUM 40 MG/VIAL (PROTONIX) IVP SCH (09:00)
[2022-03-09] MEDS: CARBIDOPA/LEVODOPA 25/100 MG TABLET PO SCH ×3 (09:00→20:29)
--- NOTE | 2022-03-09 09:00 | NUR ---
Patient is in bed with no complaints. Skin intact. patient IV patent. Patient is on IVF. patient is being turned qhrs.
[2022-03-09 09:13] VITALS: BP_SYST 155
[2022-03-09] MEDS: MORPHINE 2 MG/ML INJ. SYRINGE IVP PRN ×2 (12:25→20:33)
[2022-03-09 12:26] VITALS: BP_SYST 148
--- NOTE | 2022-03-09 13:05 | NUR ---
Patient c/o abdominal pain. patient was given morphine. will monitor.
[2022-03-09] MEDS ORDERED: PHYTONADIONE 10 MG/ML AMP IM ONE (13:45)
[2022-03-09 16:32] VITALS: BP_SYST 149
[2022-03-09] MEDS: METOPROLOL TARTRATE 50 MG TABLET PO SCH (18:23)
[2022-03-09] MEDS: SERTRALINE HCL 50 MG TABLET PO SCH (18:24)
[2022-03-09 20:05] VITALS: BP_SYST 174
[2022-03-10] VITALS: BP_SYST 155
[2022-03-10] MEDS: D5NS 1,000 ML IV SCH ×2 (05:18→17:31)
--- NOTE | 2022-03-10 05:26 | NUR ---
Closing notes Pt asleep, easily awakens, no s/s distress noted. IVF infusing at ordered rate L. FA 24G. Pt incontinent of dark yellow urine. Pericare/skin care provided and linen changed. Call light within reach. Bed low, locked, siderails up x4, alarm on. To endorse to AM nurse.
[2022-03-10] MEDS: LEVOTHYROXINE SODIUM 0.025 MG TABLET PO SCH (06:22)
[2022-03-10 07:45] LABS: INR 1.1 (0.8-1.2); PROTHROMBIN TIME 11.5 SECS (9.5-12.5)
--- NOTE | 2022-03-10 07:45 | NUR ---
OPENING NOTES: PATIENT RESTING IN BED. C/O ABDOMINAL PAIN 06/01. PRN PAIN MEDS GIVEN. BREATHING EVEN AND NON LABORED. INCONTINENT CARE DONE. BED LOCKED, ALARM ON AND IN LOWEST POSITION. FALL AND SAFETY MEASURES REINFORCED. CALL LIGHT WITHIN REACH.
[2022-03-10] MEDS: MORPHINE 4 MG INJ. 4 MG/ML VIAL IVP PRN ×2 (07:48→19:44)
[2022-03-10 08:00] VITALS: BP_SYST 138
[2022-03-10] MEDS: PANTOPRAZOLE SODIUM 40 MG/VIAL (PROTONIX) IVP SCH (08:18)
[2022-03-10] MEDS: CARBIDOPA/LEVODOPA 25/100 MG TABLET PO SCH ×3 (09:00→20:36)
--- NOTE | 2022-03-10 09:00 | NUR ---
SPOKE TO DR. SALDAÑA: SPOKE TO DR. SALDAÑA WHILE DOING HIS ROUNDS. PER DR. SALDAÑA, KEEP PATIENT ON NPO BECAUSE PATIENT STILL HAS ABDOMINAL PAIN.
[2022-03-10 12:00] VITALS: BP_SYST 141
--- NOTE | 2022-03-10 14:30 | NUR ---
RN NOTES/ INCONTINENT CARE DONE: INCONTINENT CARE DONE. NOTED SACRAL REDNESS, SKIN INTACT. NO S/S OF ACUTE DISTRESS NOTED. BED LOCKED, ALARM ON AND IN LOWEST POSITION. CALL LIGHT WITHIN REACH.
--- NOTE | 2022-03-10 16:07 | NUR ---
LEFT MESSAGE TO THE DCP ( RE: TRANSFER) CALLED DRAKE PEREZ AND LEFT MESSAGE REGARDING THE TRANSFER TO HIGHER LEVEL FOR MRCP.
[2022-03-10 16:10] VITALS: BP_SYST 136
[2022-03-10] MEDS: METOPROLOL TARTRATE 50 MG TABLET PO SCH (17:11)
[2022-03-10] MEDS: SERTRALINE HCL 50 MG TABLET PO SCH (17:13)
--- NOTE | 2022-03-10 18:39 | NUR ---
CLOSING NOTES: Patient alert, confused, disoriented, verbally responsive. Patient incontinent and on bedrest. IV patent and infusing well, Safety precautions observed, bed alarm on, side rails up for safety, call light within reach. Kept clean and dry through out shift, needs met throughout shift. Will continue to monitor until coroner transport technician RN.
[2022-03-10 19:40] VITALS: BP_SYST 167
--- NOTE | 2022-03-10 19:44 | NUR ---
Opening notes/pain Pt alert, awake, c/o 9/10 pain. Pt's son at bedside. VSS, medicated with morphine 4mg IVP as needed. Call light within reach. Bed low, locked, siderails up x3, alarm on. Safety maintained. To monitor.
[2022-03-11] VITALS: BP_SYST 154
--- NOTE | 2022-03-11 00:05 | NUR ---
Rounds/incontinence care Pt asleep, easily awakens, VSS. Pt incontinent of dark yellow urine. Pericare/skin care provided. Linens changed. Pt refused pillow for repositioning at this time. Call light within reach. To monitor.
--- NOTE | 2022-03-11 00:25 | NUR ---
IV RE-INSERTION: IV L. FA not flushing. DC'd catheter tip intact, no active bleed. CRN restarted on L wrist 22G. Successful after 1 attempt. Resumed current IVF of D5NS and regulated @ 75cc per hour. Will observe for any signs of infiltration. Pt tolerated well.
[2022-03-11] MEDS: LEVOTHYROXINE SODIUM 0.025 MG TABLET PO SCH (06:09)
--- NOTE | 2022-03-11 07:29 | NUR ---
Patient in bed resting comfortably AAOX3, presents calm and cooperative. No s/sx pain or discomfort. Respirations are non-labored. Skin is clean,warm and dry to touch. IV access is patent, dry and secure, no s/sx of redness or swelling observed. Patient medication compliant, no s/sx of adverse affects reported or observed. Patient is NPO status. Bed is locked in lowest position, call light in reach. Nurse will endorse patient to retail shift leader nurse for continue care.
[2022-03-11 08:02] VITALS: BP_SYST 190
[2022-03-11] MEDS: CARBIDOPA/LEVODOPA 25/100 MG TABLET PO SCH ×3 (08:30→21:26)
[2022-03-11] MEDS: PANTOPRAZOLE SODIUM 40 MG/VIAL (PROTONIX) IVP SCH (08:30)
[2022-03-11] MEDS: D5NS 1,000 ML IV SCH ×2 (08:31→21:29)
[2022-03-11] MEDS: hydrALAZINE HCL 20 MG/ML VIAL IVP PRN (08:31)
--- NOTE | 2022-03-11 11:16 | NUR ---
Patient in bed resting comfortably. No s/sx pain or discomfort. Respirations are non-labored. Skin is clean,warm and dry to touch. IV access is patent, dry and secure, no s/sx of redness or swelling observed. Patient medication compliant, no s/sx of adverse affects reported or observed. Bed is locked in lowest position, call light in reach. Nurse will continue care and monitor for changes in status.
[2022-03-11 11:26] VITALS: BP_SYST 117
--- NOTE | 2022-03-11 14:37 | NUR ---
CM: Verified with Neville wilkes re transfer pt to [facility]/higher level of care for ERCP/EUS. He agreed with transfer. The referral package faxed to [facility] transfer ctr # [phone], tel # [phone]. Addendum: 03/11/22 at 1702 by Blanka Blackmon RN late entry: Neville requested ERCP to be done here and EUS at [facility] because pt. complaints of increasing pain. I notified dr. Mcginnis, stated the ERCP will not relief the pain likely due to her other issue/CA /hernia. He is not going to perform the ERCP but recommended the transfer. -- chung Lozada made aware.
--- NOTE | 2022-03-11 15:58 | NUR ---
Patient in bed resting comfortably. c/o pain 7/10. Respirations are non-labored. Skin is clean,warm and dry to touch. IV access is patent, dry and secure, no s/sx of redness or swelling observed. Bed is locked in lowest position, call light in reach. Nurse will continue care and monitor for changes in status.
[2022-03-11] MEDS: MORPHINE 2 MG/ML INJ. SYRINGE IVP PRN ×3 (16:02→21:36)
[2022-03-11 16:03] VITALS: BP_SYST 120
--- NOTE | 2022-03-11 16:43 | NUR ---
[facility]: Per Cecelia: the pt is accepted, bed assignment pending Covid test result reporting back to [facility] . Medic 1 ambulance is on will call. __ RN Gomez made aware. >> CM updated the transfer process with Neville/son. Per Cecelia, there will bed available tonight. Advised her to give bed and transfer instruction to nursing unit [phone].
[2022-03-11] MEDS: SERTRALINE HCL 50 MG TABLET PO SCH (18:00)
--- NOTE | 2022-03-11 20:06 | NUR ---
END SHIFT REPORT GIVEN TO NURSE SUNNY CORTEZ. THANK YOU
--- NOTE | 2022-03-11 20:30 | NUR ---
OPENING NOTE Pt AAOx2, VSS, afebrile. Son at bedside. Notice above the bed to remind everyone not to use right arm. IVF infusing with no s/s infiltration. Pt c/o of ABD pain 03/31, will medicate as needed. Pt able to verbalize her needs but will become forgetful with detailed question. Call light within reach. Bed low, locked, siderails up and all safety precautions are in place.
--- NOTE | 2022-03-11 21:30 | NUR ---
PAIN MEDS PT REQUESTED AND WAS GIVEN SOMETHING FOR A PAIN. RATES THE ABD PAIN A 10/10. PT WAS GIVEN HER MORPHINE, SHE REORTS HAVING IT EARLIER TODAY AND IT HELP
[2022-03-12 01:01] VITALS: BP_SYST 122
[2022-03-12] MEDS: LEVOTHYROXINE SODIUM 0.025 MG TABLET PO SCH (07:00)
[2022-03-12] MEDS: CARBIDOPA/LEVODOPA 25/100 MG TABLET PO SCH ×3 (09:00→21:00)
[2022-03-12] MEDS: PANTOPRAZOLE SODIUM 40 MG/VIAL (PROTONIX) IVP SCH (09:00)
[2022-03-12 11:29] VITALS: BP_SYST 151
[2022-03-12] MEDS: hydrALAZINE HCL 20 MG/ML VIAL IVP PRN (11:40)
[2022-03-12] MEDS: MORPHINE 2 MG/ML INJ. SYRINGE IVP PRN (13:22)
[2022-03-12 15:41] VITALS: BP_SYST 119
--- NOTE | 2022-03-12 16:09 | NUR ---
CM: late entry : CM contacted [facility] x3 today at 0830 am and at 1330 , per Gilberto , [facility] is still waiting for dr. Olivo to call back for peer to peer. I notified dr. Brown and asking for him to call [facility] # [phone]. Again at 1600, per Gilberto/PAULINE said still did not get the call from dr. Olivo. Again, call dr. Olivo but no answer so I LVM for him to call [facility].
[2022-03-12] MEDS: SERTRALINE HCL 50 MG TABLET PO SCH (18:00)
[2022-03-12] MEDS: MORPHINE 4 MG INJ. 4 MG/ML VIAL IVP PRN (18:04)
[2022-03-12] MEDS: D5NS 1,000 ML IV SCH (18:10)
[2022-03-12 20:02] VITALS: BP_SYST 124
[2022-03-12 22:51] VITALS: BP_SYST 146
[2022-03-13] MEDS: D5NS 1,000 ML IV SCH (00:15)
[2022-03-13 04:28] VITALS: BP_SYST 140
[2022-03-13] MEDS: MORPHINE 2 MG/ML INJ. SYRINGE IVP PRN ×2 (04:38→16:24)
[2022-03-13 08:30] VITALS: BP_SYST 133
--- NOTE | 2022-03-13 08:39 | NUR ---
[facility]: Per Gilberto : the Md to MD was done last pm. The pt is approved for the transfer. He will call back once there is bed available. Addendum: 03/13/22 at 1140 by Blanka Blackmon RN Called back from Gilberto/lanny pt to [place] [address], room 26, report # [phone]. Dr Rodriguez accepting. JOSH Novoa/JEOVANNY Lerner made aware.
[2022-03-13] MEDS: LEVOTHYROXINE SODIUM 0.025 MG TABLET PO SCH (09:00)
[2022-03-13] MEDS: CARBIDOPA/LEVODOPA 25/100 MG TABLET PO SCH (09:00)
[2022-03-13] MEDS: PANTOPRAZOLE SODIUM 40 MG/VIAL (PROTONIX) IVP SCH (09:00)
[2022-03-13 11:34] VITALS: BP_SYST 136
[2022-03-13 12:00] VITALS: BP_SYST 132
[2022-03-13 12:36] VITALS: BP_SYST 128
--- NOTE | 2022-03-13 13:05 | NUR ---
REPORT CALLED TO KAYLEIGH Miranda RN WITH I. ALL QUESTIONS ANSWERED. PROVIDED CALL BACK NUMBER.
--- NOTE | 2022-03-13 17:00 | NUR ---
Patient transported to [facility] via stretcher with EMS. Family at bedside.
== END 2022-03-13 18:13 | DRG 444 ==
LOC: SED 12:51 → SMU 13:31
PROVIDERS: ADMIT Internal Medicine Hospice and Palliative Medicine; ATTEND Internal Medicine Hospice and Palliative Medicine
DX: K83.8 Other specified diseases of biliary tract (principal); E43 Unspecified severe protein-calorie malnutrition; R17 Unspecified jaundice; G20 Parkinson's disease; Z20.822 Contact with and (suspected) exposure to COVID-19; I10 Essential (primary) hypertension; G89.29 Other chronic pain; Z85.3 Personal history of malignant neoplasm of breast; Z95.2 Presence of prosthetic heart valve; Z90.49 Acquired absence of other specified parts of digestive tract
CPT/HCPCS: 36415; 70450-TC; 71045; 74181; 76376; 80048; 80053; 80076; 83605; 83690; 84484; 85025; 85610-TC; 85730-TC; 86301; 87040; 93005; 99285; C9113; J0360; J2270; J3430; J3480

== ENCOUNTER 2022-03-20 19:16 | Inpatient (IN) | payer OTHER, MEDICAID ==
[~2022-03-20] VITALS: Ht 157.5 cm; Wt 64.4 kg
[~2022-03-20 19:16] MED LIST changes: +ACET-2634 PO; +CARB1TAB21 PO; +DICL1KIT TP; +LEVO25CA4 PO; +LINA145C PO; +LISI10TA PO; +LORA0.5T PO; +METO-542 PO; +NEU100 PO; +OMEP40CA20 PO; +SERT-436 PO; +TRAM50TA2 PO
[2022-03-20 23:00] VITALS: BP_SYST 108
--- NOTE | 2022-03-20 23:00 | NUR ---
ADMISSION: The patient, HARIKA DARLING, 86 y/o, F admitted by KRISH PELAYO MD, TO ROOM 114 B . DIRECT ADMIT . WILL CALL MD LATER TO GET ORDERS .
--- NOTE | 2022-03-20 23:00 | NUR ---
ADMISSION NOTE Received patient from [facility] via marga, DIRECT ADMIT, received report from [facility] at [phone]. Patient admitted with diagnosis of Abdominal Pian. Patient oriented to place and self. Oriented pt to hospital routine, call light, toileting and safety-patient verbalized understanding. was paged and operator cavity pump Paloma spoke to MD for admit orders. As per MD he will address pt med rec in the morning and the rest of the orders. CBS and lytes were ordered. Pt is not in distress, vs stable, generalized edema (anasarca) right arm third spacing noted. Hematoma to left arm, redness and ecchymosis noted to right arm, redness not coccyx and buttocks noted, right groin ecchymosis with dressing in place, clean dry and intact. Timothy rails up, call light within reach, bed to low position, break locks on, and call light within reach. Assuming care for pt.
--- NOTE | 2022-03-20 23:15 | NUR ---
CALLED: DR PELAYO CALLED TO GIVE ORDERS FOR OTHER PTS , NOTIFIED APRILAT PT JUST CAME FROM [facility] , ORDERED ADMIT ORDER , LABS AND CONSULT , STATED DONT GIVE ANY FLUIDS NO W, WILL WAIT FOR THE LABS RESULT. NOTIFIED PRIMARY RN
--- NOTE | 2022-03-20 23:25 | NUR ---
LAB NOTIFED; CALLED AND TALKED WITH [facility] AND NOTIFIED ABOUT THE NEW ORDER . SHE STATED SHE IS BUSY WITH OTHER ORDER , SOON SHE FINISH SHE WILL COME AND DRAW BLOOD .
--- NOTE | 2022-03-20 23:41 | NUR ---
CONSULTATION PAGED/CALLED Reason for Consultation: ABDOMINAL PAIN Person Who was Notified: CAROLINE Consulting Physician: DR. KENDRICK Cyber Security Administrator Specialty: LICENSING COORDINATOR Ordering Physician: DR. PELAYO
[2022-03-21] MEDS ORDERED: HYDROcodone/ACETAMIN 5-325 MG TAB (NORCO/ VICODIN) PO PRN (01:15)
[2022-03-21] MEDS ORDERED: MORPHINE 2 MG/ML INJ. SYRINGE IVP PRN ×2 (01:15→07:00)
--- NOTE | 2022-03-21 02:00 | NUR ---
Called and spoke to Dr. Warner to obtain order for pain meds. Order received. Covid and MRSA screening done and sent to lab.
[2022-03-21 04:32] LABS: HEMATOCRIT 24.2 % (36-48); HEMOGLOBIN 8.2 g/dL (12.0-16.0)
[2022-03-21 04:53] LABS: MONOCYTES # (AUTO) 0.3 K/uL (0.0-1.0)
[2022-03-21 04:56] LABS: ANION GAP 5 (5-15); CALCIUM 7.9 mg/dL (8.4-11.0); CHLORIDE 102 mmol/L (98-107); CREATININE 1.17 mg/dL (0.55-1.30); GLUCOSE 92 mg/dL (70-99); POTASSIUM 3.8 mmol/L (3.5-5.1); SODIUM SERUM 131 mmol/L (136-145); UREA NITROGEN, BLOOD 23 mg/dL (8-21)
[2022-03-21 05:00] VITALS: BP_SYST 108
[2022-03-21 05:00] LABS: BASOPHILS % (AUTO) 0.2 % (0.0-2.0); EOSINOPHILS % (AUTO) 0.3 % (0.0-4.0); LYMPHOCYTES # (AUTO) 3.5 K/uL (1.0-5.5); LYMPHOCYTES % (AUTO) 27.8 % (20.5-51.5); MEAN CORPUSCULAR HEMOGLOBIN 31 pg (27-31); MEAN CORPUSCULAR HGB CONC 34 % (32-36); MEAN CORPUSCULAR VOLUME 90 fL (79.0-98.0); NEUTROPHILS # (AUTO) 8.8 K/uL (1.8-7.7); NEUTROPHILS % (AUTO) 69.7 % (40.0-70.0); PLATELET COUNT (AUTO) 323 K/uL (130-430); RED CELL DISTRIBUTION WIDTH 21.3 % (9.0-15.0); WHITE BLOOD COUNT (AUTO) 12.6 K/uL (4.8-10.8)
--- NOTE | 2022-03-21 06:00 | NUR ---
Skin pictures taken. Jazlyn care provided. Pt remains stable.
[2022-03-21] MEDS ORDERED: HYDROcodone/ACETAMIN 5-325 MG TAB (NORCO/ VICODIN) ONE (06:33)
[2022-03-21] MEDS ORDERED: ACETAMINOPHEN 325 MG TABLET PO PRN ×2 (07:00)
[2022-03-21] MEDS ORDERED: ONDANSETRON HCL 4 MG/2 ML VIAL IVP PRN (07:00)
[2022-03-21 07:27] LABS: HEMATOCRIT 23.6 % (36-48); MEAN CORPUSCULAR HEMOGLOBIN 31 pg (27-31); MEAN CORPUSCULAR HGB CONC 34 % (32-36); MEAN CORPUSCULAR VOLUME 90 fL (79.0-98.0); PLATELET COUNT (AUTO) 321 K/uL (130-430); RED BLOOD CELL COUNT(AUTO) 2.64 MIL/uL (4.2-6.2); RED CELL DISTRIBUTION WIDTH 21.2 % (9.0-15.0); WHITE BLOOD COUNT (AUTO) 13.8 K/uL (4.8-10.8)
[2022-03-21 08:17] LABS: ANION GAP 10 (5-15); CALCIUM 8.7 mg/dL (8.4-11.0); CHLORIDE 98 mmol/L (98-107); CREATININE 1.15 mg/dL (0.55-1.30); GLUCOSE 101 mg/dL (70-99); POTASSIUM 3.5 mmol/L (3.5-5.1); SODIUM SERUM 129 mmol/L (136-145); UREA NITROGEN, BLOOD 25 mg/dL (8-21)
[2022-03-21 08:45] VITALS: BP_SYST 99
[2022-03-21 08:55] LABS: ALBUMIN 1.5 g/dL (3.4-4.8); BILIRUBIN,DIRECT 4.7 mg/dL (0.0-0.3); TOTAL BILIRUBIN 6.1 mg/dL (0.0-1.0)
[2022-03-21 12:15] VITALS: BP_SYST 131
[2022-03-21 12:25] VITALS: BP_SYST 131
[2022-03-21 14:37] LABS: BAND % (MANUAL) 15 % (0-6); BASOPHILS % (MANUAL) 0 % (0-2); EOSINOPHILS % (MANUAL) 0 % (0-7); LYMPHOCYTES % (MANUAL) 6 % (20-46); METAMYELOCYTES % 0 % (0-0); MONOCYTES % (MANUAL) 0 % (0-11)
[2022-03-21 16:15] VITALS: BP_SYST 124
[2022-03-21 16:35] VITALS: BP_SYST 124
--- NOTE | 2022-03-21 19:30 | NUR ---
PM OPENING NOTES HAND-OFF REPORT RECEIVED FROM [facility]. ENDORSED MEDICATIONS TO BE RECONCILED. REPORTED PT REMAINS NPO X MEDS, EDEMA TO UPPER EXTREMITIES R>L @ 4+ AND 3+ AND PRESENCE OF PANCREATIC MASS. PT RECEIVED RESTING QUIETLY IN ROOM, EASILY AROUSED. A&0 X3-4 WHEN ENGAGED WITH "LIKE KHMER SPEAKING STAFF". PLAN FOR TONIGHT, PROVIDE COMFORT AND SAFETY MEASURES AND GET HS MEDS RECONCILED AND ADMINISTERED; KEEP NPO X MEDS.
--- NOTE | 2022-03-21 21:21 | NUR ---
DR. REYNAGA FOR DR PELAYO PHONED CONCERNING MEDICATION RECONCILIATION. OK TO TAKE HS MEDS
[2022-03-21] MEDS ORDERED: GABAPENTIN 100 MG CAPSULE PO SCH (21:45)
[2022-03-21] MEDS ORDERED: CARBIDOPA/LEVODOPA 25/100 MG TABLET PO SCH (21:45)
[2022-03-21] MEDS ORDERED: SERTRALINE HCL 50 MG TABLET PO SCH (21:45)
[2022-03-21] MEDS: METOPROLOL SUCCINATE 50 MG TAB.SR.24H (TOPROL XL) PO SCH (22:28)
[2022-03-22] VITALS: BP_SYST 118
--- NOTE | 2022-03-22 04:00 | NUR ---
BATH AND LINEN CHANGE. 1 B.M MODERATE AMT. REMAINS INCONT OF URINE AND STOOL.
--- NOTE | 2022-03-22 07:30 | NUR ---
PM CLOSING NOTES HAND-OFF REPORT TO [facility]. REPORTED TO KEEP PT NPO AND TO OBTAIN RECONCILIATION OF REMAINDER OF MEDS.ON PT HOME LIST IN ORDER TO ADMINISTER ON HIS SHIFT I DID FOR CHAIN PULLER.
[2022-03-22 07:34] LABS: BASOPHILS % (AUTO) 0.1 % (0.0-2.0); EOSINOPHILS # (AUTO) 0.1 K/uL (0.0-0.4); EOSINOPHILS % (AUTO) 0.8 % (0.0-4.0); HEMATOCRIT 22.2 % (36-48); HEMOGLOBIN 7.4 g/dL (12.0-16.0); LYMPHOCYTES # (AUTO) 0.7 K/uL (1.0-5.5); LYMPHOCYTES % (AUTO) 6.2 % (20.5-51.5); MEAN CORPUSCULAR HEMOGLOBIN 30 pg (27-31); MEAN CORPUSCULAR HGB CONC 33 % (32-36); MEAN CORPUSCULAR VOLUME 91 fL (79.0-98.0); MONOCYTES # (AUTO) 0.2 K/uL (0.0-1.0); MONOCYTES % (AUTO) 2.1 % (1.7-9.3); NEUTROPHILS # (AUTO) 10.5 K/uL (1.8-7.7); NEUTROPHILS % (AUTO) 90.8 % (40.0-70.0); PLATELET COUNT (AUTO) 290 K/uL (130-430); RED BLOOD CELL COUNT(AUTO) 2.46 MIL/uL (4.2-6.2); RED CELL DISTRIBUTION WIDTH 21.9 % (9.0-15.0); WHITE BLOOD COUNT (AUTO) 11.5 K/uL (4.8-10.8)
[2022-03-22 08:01] VITALS: BP_SYST 128
[2022-03-22 08:52] LABS: ALANINE AMINOTRANSFERASE 42 U/L (12-78); ALBUMIN 1.1 g/dL (3.4-4.8); ANION GAP 4 (5-15); BILIRUBIN,DIRECT 3.8 mg/dL (0.0-0.3); CALCIUM 7.5 mg/dL (8.4-11.0); CHLORIDE 102 mmol/L (98-107); CREATININE 0.97 mg/dL (0.55-1.30); GLUCOSE 92 mg/dL (70-99); PHOSPHORUS 3.1 mg/dL (2.7-4.5); POTASSIUM 3.6 mmol/L (3.5-5.1); SODIUM SERUM 131 mmol/L (136-145); TOTAL BILIRUBIN 4.5 mg/dL (0.0-1.0); UREA NITROGEN, BLOOD 25 mg/dL (8-21)
[2022-03-22 09:50] VITALS: BP_SYST 132
[2022-03-22 10:01] LABS: ASPARTATE AMINOTRANSFERASE 83 U/L (10-37)
[2022-03-22] MEDS: CARBIDOPA/LEVODOPA 25/100 MG TABLET PO SCH ×3 (10:04→20:43)
[2022-03-22] MEDS: CLOPIDOGREL BISULFATE 75 MG TABLET PO SCH (10:05)
[2022-03-22] MEDS: GABAPENTIN 100 MG CAPSULE PO SCH ×3 (10:05→20:43)
[2022-03-22] MEDS: DOCUSATE SODIUM 100 MG CAPSULE PO SCH ×2 (10:06→20:43)
[2022-03-22] MEDS: FAMOTIDINE 20 MG TABLET PO SCH (10:06)
[2022-03-22] MEDS: CHOLECALCIFEROL (VITAMIN D3) 2,000 UNIT TABLET PO SCH (10:06)
[2022-03-22] MEDS: ASPIRIN 81 MG TAB.CHEW PO SCH (10:06)
[2022-03-22] MEDS: SENNOSIDES 8.6 MG TABLET PO SCH (10:06)
[2022-03-22 12:00] VITALS: BP_SYST 130
[2022-03-22 12:45] VITALS: BP_SYST 130; BP_SYST 80
--- NOTE | 2022-03-22 15:37 | NUR ---
ST EVALUATION COMPLETED. ST TX NOT INDICATED AT THIS TIME. RECOMMEND PO DIET OF PUREE TEXTURE AND NECTAR THICK LIQUIDS. FAMILY INDICATES THAT THESE ARE THE TEXTURES THAT SHE PREFERS AND HAS AT HOME. 1:1 FEEDER AND FULL ASPIRATION PRECAUTIONS
--- NOTE | 2022-03-22 15:46 | NUR ---
Dietitian Recommendations * Advance diet if/when medically appropriate; food texture per ST santos eval results LP, RD Please refer to Nutrition Assessment for details. Addendum: 03/22/22 at [address] Amended: Links added.
[2022-03-22 16:50] VITALS: BP_SYST 135
[2022-03-22] MEDS: METOPROLOL SUCCINATE 50 MG TAB.SR.24H (TOPROL XL) PO SCH (17:23)
[2022-03-22] MEDS ORDERED: METOPROLOL TARTRATE 50 MG TABLET PO SCH (18:00)
--- NOTE | 2022-03-22 19:03 | NUR ---
Shift Summary patient is AAOX1-2. vitals are stable. family was updated on status of patients treatment plan. med reconciliation done. patient passed RN bedside swallow eval. speech therapist cleared patient for diet per recommendation documentation. pending biopsy from [facility]. patient resting. endorsement given to JEOVANNY Madrigal. call light within reach. bed set on low. bed alarm on. [id number] provided. kai care provided during shift.
--- NOTE | 2022-03-22 19:30 | NUR ---
PM OPENING NOTES HAND-OFF REPORT RECEIVED FROM [facility]. REPORTED PENDING RESULTS [facility] BIOPSY PENDING AND TO PASS ONTO A.M. NURSE TO FOLLOW-UP IN RECEIVING COPY OF REPORT. PT ADVANCED TO PUREE DIET AFTER SUCCESSFULLY PASSING SWALLOW EVAL AND SPEECH EVAL. MD REPORT STRESSED DO NOT TURN PT TOWARD EFFECTED SIDE. PT AWAKE WITH FAMILY AROUND BEDSIDE AT THIS TIME. ASSUMED CARE OF PT.
--- NOTE | 2022-03-22 20:30 | NUR ---
PHILO SUPER PROVIDED ENSURE PER FAMILY REQUEST FOR PT DIET STATUS CHANGED AFTER KITCHEN CLOSED AND PT HUNGRY FOR ENSURE. 3 COLD BOTTLES GIVEN. FAMILY AND PT VERY APPRECIATIVE. PT CONTINUES JAUNDICE IN SKIN COLOR EYES NOT MUCH. CONT. TO OFF LOAD EXTREMITIES X4 WITH PILLOWS. PT MORE ENGAGING AND VERY LITTLE SIGNS OF CONFUSION IF ANY SHE HAS INTERPRETERS AND WE ALL ARE ON THE SAME PAGE. CONT. TO MONITOR AND ASSIST.
[2022-03-22] MEDS: ATORVASTATIN 20 MG TABLET PO SCH (20:44)
[2022-03-22] MEDS: SERTRALINE HCL 50 MG TABLET PO SCH (20:44)
[2022-03-22] MEDS ORDERED: ATORVASTATIN 20 MG TABLET PO SCH (21:00)
--- NOTE | 2022-03-22 21:30 | NUR ---
DAUGHTER AND GRAND-DAUGHTER LEFT BEDSIDE. PT VERY TALKATIVE CONCERNING HER CHILDREN AND THEIR ACCOMPLISHMENTS. ROUTINE MEDS GIVEN AND PLAN IS TO GIVEN NORCO LATER PER PT REQUEST.
--- NOTE | 2022-03-23 02:00 | NUR ---
PT VSS. STATED CALIENTE AND WOULD LIKE FEET UNCOVERED ONLY. TURNED BACK TO LEFT ONLY AVOIDING RIGHT SIDE.
[2022-03-23] MEDS: HYDROcodone/ACETAMIN 5-325 MG TAB (NORCO/ VICODIN) PO PRN ×2 (02:25→20:25)
--- NOTE | 2022-03-23 04:00 | NUR ---
PT GLENN PARTIAL BATH AND BED CHANGE VERY WELL.NOTED 1 BM LIQUID NO FORMED MATERIAL.
--- NOTE | 2022-03-23 06:00 | NUR ---
OVERALL GOOD NIGHT. MEDX1 WITH NORCO 1 TAB SEE EMAR. FOR ABD AND RECTAL DISCOMFORT
[2022-03-23 06:28] LABS: EOSINOPHILS % (AUTO) 0.4 % (0.0-4.0); HEMATOCRIT 22.6 % (36-48); HEMOGLOBIN 7.2 g/dL (12.0-16.0); LYMPHOCYTES # (AUTO) 0.2 K/uL (1.0-5.5); LYMPHOCYTES % (AUTO) 1.9 % (20.5-51.5); MEAN CORPUSCULAR HEMOGLOBIN 30 pg (27-31); MEAN CORPUSCULAR HGB CONC 32 % (32-36); MEAN CORPUSCULAR VOLUME 94 fL (79.0-98.0); MONOCYTES # (AUTO) 0.1 K/uL (0.0-1.0); MONOCYTES % (AUTO) 0.7 % (1.7-9.3); NEUTROPHILS # (AUTO) 11.7 K/uL (1.8-7.7); PLATELET COUNT (AUTO) 253 K/uL (130-430); RED BLOOD CELL COUNT(AUTO) 2.42 MIL/uL (4.2-6.2); RED CELL DISTRIBUTION WIDTH 22.5 % (9.0-15.0)
[2022-03-23 06:50] LABS: ANION GAP 5 (5-15); CALCIUM 7.7 mg/dL (8.4-11.0); CHLORIDE 103 mmol/L (98-107); CREATININE 0.96 mg/dL (0.55-1.30); GLUCOSE 84 mg/dL (70-99); POTASSIUM 3.4 mmol/L (3.5-5.1); SODIUM SERUM 133 mmol/L (136-145); UREA NITROGEN, BLOOD 25 mg/dL (8-21)
[2022-03-23 07:30] VITALS: BP_SYST 97
--- NOTE | 2022-03-23 07:30 | NUR ---
RELINQUISHED CARE AT THIS TIME TO ON-COMING A.M NURSE. ENDORSED FOLLOW-UP WITH [facility] ([facility]) FOR COPY OF PENDING BIOPSY RESULTS AND TO ORDER ENSURE WITH MEALS PER FAMILY REQUEST SO PT ALWAYS HAS SOMETHING TO BOOST HER NOURISHMENT IN BETWEEN MEALS. RELINQUISHING CARE OF PT AT THIS TIME.
--- NOTE | 2022-03-23 08:00 | NUR ---
OPENING NOTE: Received patient in bed, alert, with episode of confusion, verbally responsive. Safety precaution observed, bed alarm on, side rails up, call light within reach, IV patent and infusing well. Will continue to monitor.
[2022-03-23] MEDS: LEVOTHYROXINE SODIUM 0.025 MG TABLET PO SCH (08:26)
[2022-03-23] MEDS: GABAPENTIN 100 MG CAPSULE PO SCH ×3 (08:27→21:34)
[2022-03-23] MEDS: ASPIRIN 81 MG TAB.CHEW PO SCH (08:27)
[2022-03-23] MEDS: DOCUSATE SODIUM 100 MG CAPSULE PO SCH ×2 (08:28→21:34)
[2022-03-23] MEDS: CARBIDOPA/LEVODOPA 25/100 MG TABLET PO SCH ×3 (08:28→21:34)
[2022-03-23] MEDS: SENNOSIDES 8.6 MG TABLET PO SCH (08:28)
[2022-03-23] MEDS: CHOLECALCIFEROL (VITAMIN D3) 2,000 UNIT TABLET PO SCH (08:28)
[2022-03-23] MEDS: FAMOTIDINE 20 MG TABLET PO SCH (08:28)
[2022-03-23] MEDS: CLOPIDOGREL BISULFATE 75 MG TABLET PO SCH (08:33)
[2022-03-23 12:00] VITALS: BP_SYST 124
--- NOTE | 2022-03-23 12:30 | NUR ---
RN notes: Incontinent care done. Sacral Skin intact. No s/s of acute distress noted. Bed locked, alarm on and in lowest position. Fall and safety measures reinforced. Call light within reach.
[2022-03-23] MEDS ORDERED: cefTRIAXone 1 GM IVPB PREMIX 50 ML IV ONE (16:00)
[2022-03-23 16:19] VITALS: BP_SYST 116
[2022-03-23] MEDS: METOPROLOL SUCCINATE 50 MG TAB.SR.24H (TOPROL XL) PO SCH (17:34)
--- NOTE | 2022-03-23 18:58 | NUR ---
CLOSING NOTES: Patient alert. with episode of confusion, verbally responsive. Turned and repositioned for comfort, kept clean and dry, all needs met throughout shift, incontinence care performed, safety precaution observed, bed alarm on, side rails up for safety, call light within reach, IV patent and infusing well. Will continue to monitor until career development coordinator/teacher nurse.
[2022-03-23 20:06] VITALS: BP_SYST 130
[2022-03-23] MEDS: ATORVASTATIN 20 MG TABLET PO SCH (21:34)
[2022-03-23] MEDS: SERTRALINE HCL 50 MG TABLET PO SCH (21:34)
[2022-03-24 00:49] VITALS: BP_SYST 155
[2022-03-24] MEDS: LEVOTHYROXINE SODIUM 0.025 MG TABLET PO SCH (06:07)
[2022-03-24 07:54] VITALS: BP_SYST 123
[2022-03-24 08:20] LABS: ALANINE AMINOTRANSFERASE 69 U/L (12-78); ALBUMIN 1.3 g/dL (3.4-4.8); ANION GAP 10 (5-15); ASPARTATE AMINOTRANSFERASE 100 U/L (10-37); BILIRUBIN,DIRECT 3.4 mg/dL (0.0-0.3); CALCIUM 8.3 mg/dL (8.4-11.0); CHLORIDE 101 mmol/L (98-107); CREATININE 1.01 mg/dL (0.55-1.30); GLUCOSE 154 mg/dL (70-99); POTASSIUM 4.1 mmol/L (3.5-5.1); SODIUM SERUM 133 mmol/L (136-145); UREA NITROGEN, BLOOD 26 mg/dL (8-21)
[2022-03-24] MEDS: ASPIRIN 81 MG TAB.CHEW PO SCH (09:10)
[2022-03-24] MEDS: CLOPIDOGREL BISULFATE 75 MG TABLET PO SCH (09:10)
[2022-03-24] MEDS: GABAPENTIN 100 MG CAPSULE PO SCH ×3 (09:10→20:52)
[2022-03-24] MEDS: FAMOTIDINE 20 MG TABLET PO SCH (09:10)
[2022-03-24] MEDS: CARBIDOPA/LEVODOPA 25/100 MG TABLET PO SCH ×3 (09:10→20:53)
[2022-03-24] MEDS: SENNOSIDES 8.6 MG TABLET PO SCH (09:10)
[2022-03-24] MEDS: DOCUSATE SODIUM 100 MG CAPSULE PO SCH ×2 (09:10→20:53)
[2022-03-24] MEDS: CHOLECALCIFEROL (VITAMIN D3) 2,000 UNIT TABLET PO SCH (09:10)
[2022-03-24 09:31] LABS: BASOPHILS % (AUTO) 0.3 % (0.0-2.0); EOSINOPHILS % (AUTO) 0.1 % (0.0-4.0); HEMATOCRIT 22.9 % (36-48); HEMOGLOBIN 7.7 g/dL (12.0-16.0); LYMPHOCYTES # (AUTO) 0.2 K/uL (1.0-5.5); LYMPHOCYTES % (AUTO) 1.9 % (20.5-51.5); MEAN CORPUSCULAR HEMOGLOBIN 31 pg (27-31); MEAN CORPUSCULAR HGB CONC 34 % (32-36); MEAN CORPUSCULAR VOLUME 92 fL (79.0-98.0); MONOCYTES # (AUTO) 0.2 K/uL (0.0-1.0); MONOCYTES % (AUTO) 1.9 % (1.7-9.3); NEUTROPHILS # (AUTO) 9.5 K/uL (1.8-7.7); NEUTROPHILS % (AUTO) 95.8 % (40.0-70.0); PLATELET COUNT (AUTO) 229 K/uL (130-430); RED BLOOD CELL COUNT(AUTO) 2.49 MIL/uL (4.2-6.2); RED CELL DISTRIBUTION WIDTH 22.5 % (9.0-15.0); WHITE BLOOD COUNT (AUTO) 9.9 K/uL (4.8-10.8)
[2022-03-24 12:00] VITALS: BP_SYST 133
[2022-03-24 16:00] VITALS: BP_SYST 128
[2022-03-24] MEDS: cefTRIAXone 1 GM IVPB PREMIX 50 ML IV SCH (16:28)
--- NOTE | 2022-03-24 16:31 | NUR ---
CM: S/w son /Neville re dc pt to snf, he wants pt home with homehealth. Stated he is the multimedia project manager caregiver to the pt. I consulted with dr. Antonio who reviewed the chart and would dc pt home with HH . The pt can go home today and to arrange HH on Friday. The pt is bed bound but able to eat puree diet. I requested Dr. Antonio to speak with son as well. Dr. Antonio cell # [phone]. Abraham Lozada phone # [phone].-- RN Mike made aware.
[2022-03-24] MEDS ORDERED: OMEP40CA20 PO (16:33)
[2022-03-24] MEDS ORDERED: CEPH250C PO (16:34)
[2022-03-24] MEDS: METOPROLOL SUCCINATE 50 MG TAB.SR.24H (TOPROL XL) PO SCH (18:27)
--- NOTE | 2022-03-24 18:40 | NUR ---
shift summary. patient is AAOX1. vitals are stable. CM informed bedside nurse that patients son will be pick patient up. son was bedside and informed bedside nurse that he doesnt feel comfortable taking patient home. Dr. Antonio was called and updated on the situation. Dr. Antonio states we will go back to the initial plan of transferring patient to skilled nurse facility. family bedside and states they do not have any questions or concerns at the moment. will endorse to oncoming nurse. call light within reach. bed set to low and locked. q2hour turn implemented during shift.
[2022-03-24 20:45] VITALS: BP_SYST 159
[2022-03-24] MEDS: SERTRALINE HCL 50 MG TABLET PO SCH (20:53)
[2022-03-24] MEDS: ATORVASTATIN 20 MG TABLET PO SCH (20:53)
[2022-03-24] MEDS: HYDROcodone/ACETAMIN 5-325 MG TAB (NORCO/ VICODIN) PO PRN (20:53)
[2022-03-25 00:36] VITALS: BP_SYST 102
[2022-03-25] MEDS: LEVOTHYROXINE SODIUM 0.025 MG TABLET PO SCH (06:37)
[2022-03-25 07:22] LABS: BASOPHILS % (AUTO) 0.3 % (0.0-2.0); EOSINOPHILS % (AUTO) 0.3 % (0.0-4.0); HEMATOCRIT 22.1 % (36-48); HEMOGLOBIN 7.5 g/dL (12.0-16.0); LYMPHOCYTES # (AUTO) 0.6 K/uL (1.0-5.5); LYMPHOCYTES % (AUTO) 6.9 % (20.5-51.5); MEAN CORPUSCULAR HEMOGLOBIN 31 pg (27-31); MEAN CORPUSCULAR HGB CONC 34 % (32-36); MEAN CORPUSCULAR VOLUME 92 fL (79.0-98.0); MONOCYTES # (AUTO) 0.3 K/uL (0.0-1.0); MONOCYTES % (AUTO) 3.2 % (1.7-9.3); NEUTROPHILS # (AUTO) 7.7 K/uL (1.8-7.7); NEUTROPHILS % (AUTO) 89.3 % (40.0-70.0); PLATELET COUNT (AUTO) 197 K/uL (130-430); RED BLOOD CELL COUNT(AUTO) 2.41 MIL/uL (4.2-6.2); RED CELL DISTRIBUTION WIDTH 22.4 % (9.0-15.0); WHITE BLOOD COUNT (AUTO) 8.6 K/uL (4.8-10.8)
[2022-03-25 08:00] VITALS: BP_SYST 156
[2022-03-25 08:01] LABS: ALANINE AMINOTRANSFERASE 35 U/L (12-78); ANION GAP 3 (5-15); ASPARTATE AMINOTRANSFERASE 81 U/L (10-37); BILIRUBIN,DIRECT 2.4 mg/dL (0.0-0.3); CALCIUM 7.5 mg/dL (8.4-11.0); CHLORIDE 104 mmol/L (98-107); GLUCOSE 120 mg/dL (70-99); POTASSIUM 3.4 mmol/L (3.5-5.1); SODIUM SERUM 133 mmol/L (136-145); UREA NITROGEN, BLOOD 25 mg/dL (8-21)
[2022-03-25 09:04] LABS: TOTAL BILIRUBIN 2.7 mg/dL (0.0-1.0)
[2022-03-25] MEDS: CARBIDOPA/LEVODOPA 25/100 MG TABLET PO SCH ×3 (09:15→20:53)
[2022-03-25] MEDS: FAMOTIDINE 20 MG TABLET PO SCH (09:15)
[2022-03-25] MEDS: DOCUSATE SODIUM 100 MG CAPSULE PO SCH ×2 (09:15→20:53)
[2022-03-25] MEDS: ASPIRIN 81 MG TAB.CHEW PO SCH (09:15)
[2022-03-25] MEDS: CLOPIDOGREL BISULFATE 75 MG TABLET PO SCH (09:15)
[2022-03-25] MEDS: GABAPENTIN 100 MG CAPSULE PO SCH ×3 (09:15→20:53)
[2022-03-25] MEDS: SENNOSIDES 8.6 MG TABLET PO SCH (09:15)
[2022-03-25] MEDS: CHOLECALCIFEROL (VITAMIN D3) 2,000 UNIT TABLET PO SCH (09:15)
[2022-03-25 12:00] VITALS: BP_SYST 134
[2022-03-25] MEDS: cefTRIAXone 1 GM IVPB PREMIX 50 ML IV SCH (15:02)
[2022-03-25 16:00] VITALS: BP_SYST 133
[2022-03-25] MEDS: METOPROLOL SUCCINATE 50 MG TAB.SR.24H (TOPROL XL) PO SCH (18:32)
--- NOTE | 2022-03-25 19:05 | NUR ---
SHIFT SUMMARY patient is AAOX3. vitals are stable. attempted to do In and out cath to collect UA with no success. family bedside and updated on plan of care. will endorse to oncoming nurse. call light within reach. bed set on low and alarm on. q2turn inplemented during shift.
[2022-03-25 20:12] VITALS: BP_SYST 124
[2022-03-25] MEDS: SERTRALINE HCL 50 MG TABLET PO SCH (20:52)
[2022-03-25] MEDS: ATORVASTATIN 20 MG TABLET PO SCH (20:53)
[2022-03-25 23:06] VITALS: BP_SYST 121
[2022-03-26 05:22] LABS: BILIRUBIN,URINE 1+ (NEGATIVE); BLOOD, URINE 1+ (NEGATIVE); CLARITY/URINE CLEAR (CLEAR); COLOR,URINE YELLOW (YELLOW); GLUCOSE,URINE NEGATIVE (NEGATIVE); KETONES,URINE NEGATIVE (NEGATIVE); LEUKOCYTE ESTERASE ,URINE TRACE (NEGATIVE); NITRITE, URINE NEGATIVE (NEGATIVE); PH,URINE 5.5 (5.0-8.0); PROTEIN URINE 2+ (NEGATIVE)
[2022-03-26 05:32] LABS: BACTERIA,URINE FEW /HPF (None Seen); COARSE GRANULAR CASTS,URINE 0-10 /LPF (None Seen)
[2022-03-26] MEDS: LEVOTHYROXINE SODIUM 0.025 MG TABLET PO SCH (06:00)
[2022-03-26 07:14] LABS: BASOPHILS # (AUTO) 0.1 K/uL (0.0-0.2); BASOPHILS % (AUTO) 0.6 % (0.0-2.0); EOSINOPHILS # (AUTO) 0.1 K/uL (0.0-0.4); EOSINOPHILS % (AUTO) 0.6 % (0.0-4.0); HEMATOCRIT 23.9 % (36-48); LYMPHOCYTES # (AUTO) 0.8 K/uL (1.0-5.5); LYMPHOCYTES % (AUTO) 8.8 % (20.5-51.5); MEAN CORPUSCULAR HEMOGLOBIN 31 pg (27-31); MEAN CORPUSCULAR HGB CONC 34 % (32-36); MEAN CORPUSCULAR VOLUME 91 fL (79.0-98.0); MONOCYTES # (AUTO) 0.2 K/uL (0.0-1.0); MONOCYTES % (AUTO) 2.7 % (1.7-9.3); NEUTROPHILS # (AUTO) 7.9 K/uL (1.8-7.7); NEUTROPHILS % (AUTO) 87.3 % (40.0-70.0); PLATELET COUNT (AUTO) 185 K/uL (130-430); RED BLOOD CELL COUNT(AUTO) 2.62 MIL/uL (4.2-6.2); RED CELL DISTRIBUTION WIDTH 21.9 % (9.0-15.0); WHITE BLOOD COUNT (AUTO) 9.1 K/uL (4.8-10.8)
[2022-03-26 07:48] LABS: ANION GAP 5 (5-15); CHLORIDE 104 mmol/L (98-107); CREATININE 0.88 mg/dL (0.55-1.30); GLUCOSE 88 mg/dL (70-99); POTASSIUM 3.5 mmol/L (3.5-5.1); SODIUM SERUM 137 mmol/L (136-145); UREA NITROGEN, BLOOD 25 mg/dL (8-21)
[2022-03-26 08:00] VITALS: BP_SYST 130
--- NOTE | 2022-03-26 08:00 | NUR ---
Morning note: Pt A/Ox2, resting in bed, No s/s of respiratory or cardiac distress. LAC IV site is clean dry and intact, SL. Fall and safety precautions are in place, call light with in reach, will continue to monitor.
--- NOTE | 2022-03-26 10:23 | NUR ---
Discharge Planning: NVP faxed pt referral to [facility] [phone] DC to follow up Addendum: 03/26/22 at 135 by Cyndi GASTON [facility] [phone] accepted pt, but family wants SNF. NVP faxed pt referral to [facility] [phone], [facility] [phone]. Addendum: 03/26/22 at 1356 by Cyndi Fitzgerald DP [facility] [phone] accepted Rm 16A, [facility] P#[phone] accepted pt pending Rm#. Addendum: 03/26/22 at 1646 by Cyndi Fitzgerald DP DCP arrange transport with [facility] [phone] BLS 6:30pm to [facility] [phone] accepted Rm 16A. DCP made CM aware and patient packert taken to nurse station. Addendum: 03/26/22 at 1647 by Cyndi Fitzgerald DP Disposition 03
[2022-03-26] MEDS: ASPIRIN 81 MG TAB.CHEW PO SCH (10:35)
[2022-03-26] MEDS: SENNOSIDES 8.6 MG TABLET PO SCH (10:35)
[2022-03-26] MEDS: DOCUSATE SODIUM 100 MG CAPSULE PO SCH (10:36)
[2022-03-26] MEDS: FAMOTIDINE 20 MG TABLET PO SCH (10:36)
[2022-03-26] MEDS: GABAPENTIN 100 MG CAPSULE PO SCH ×2 (10:36→15:24)
[2022-03-26] MEDS: CARBIDOPA/LEVODOPA 25/100 MG TABLET PO SCH ×2 (10:36→15:24)
[2022-03-26] MEDS: CHOLECALCIFEROL (VITAMIN D3) 2,000 UNIT TABLET PO SCH (10:36)
[2022-03-26] MEDS: CLOPIDOGREL BISULFATE 75 MG TABLET PO SCH (10:36)
--- NOTE | 2022-03-26 12:04 | NUR ---
DISCHARGE PLANNING Called & spoke with son Neville Lockwood, ph [phone], states that he discussed with sister & have decided want pt to go to short term SNF for rehab before coming back home. States that will have sister call me with preference, does not remember name of SNF was at in past. Received call from dtr Nesha Fabián, cell [phone], states pt was at [facility] in past & that would be preference. States #2 would be [facility]. Agrees with dc to snf today. Called & spoke with Dr Lee & updated, gave ph order for dc to snf. 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
--- NOTE | 2022-03-26 13:44 | NUR ---
D/C Patient Patient given medication reconciliation form and D/C instructions. Exit Care provided. Patient verbalized understanding. MD discussed with patient the results and treatment provided. Ambulatory with steady gait for discharge to home. Patient in stable condition, ID band removed. IV catheter removed, intact and dressing applied, no active bleeding. Rx of Regular insulin, sliding scale of 10 units of BG is over 300. given. Patient educated on pain management. All belongings sent with patient. Addendum: 03/26/22 at 2026 by Livan Campos RN Disregard, wrong pt note
[2022-03-26] MEDS: cefTRIAXone 1 GM IVPB PREMIX 50 ML IV SCH (15:24)
[2022-03-26 16:00] VITALS: BP_SYST 115
[2022-03-26 18:17] VITALS: BP_SYST 115
--- NOTE | 2022-03-26 19:00 | NUR ---
PT TRANSFERRED Report given to Salma at [facility]. Transfer packet with Transfer Orders and Medication Reconciliation form given to EMT with report. Exit care provided. [facility] ID band removed, replaced with ID band with pt's name and . IV catheter removed, intact and dressing applied, no active bleeding. All belongings sent with patient. Patient left floor via gurney escorted by EMT in no distress.
--- NOTE | 2022-03-27 08:30 | NUR ---
Dispo code 03
== END 2022-03-26 19:30 | DRG 374 ==
LOC: SMU 23:00
PROVIDERS: ADMIT Student in an Organized Health Care Education/Training Program; ATTEND Student in an Organized Health Care Education/Training Program
DX: D49.0 Neoplasm of unspecified behavior of digestive system (principal); K83.1 Obstruction of bile duct; R17 Unspecified jaundice; E87.1 Hypo-osmolality and hyponatremia; K86.1 Other chronic pancreatitis; K86.9 Disease of pancreas, unspecified; R10.9 Unspecified abdominal pain; I10 Essential (primary) hypertension; R13.10 Dysphagia, unspecified; E11.9 Type 2 diabetes mellitus without complications; D64.9 Anemia, unspecified; E03.9 Hypothyroidism, unspecified; G20 Parkinson's disease; C50.919 Malignant neoplasm of unspecified site of unspecified female breast; K21.9 Gastro-esophageal reflux disease without esophagitis; N20.0 Calculus of kidney; Z20.822 Contact with and (suspected) exposure to COVID-19; Z85.3 Personal history of malignant neoplasm of breast; Z79.1 Long term (current) use of non-steroidal anti-inflammatories (NSAID); Z79.899 Other long term (current) drug therapy
CPT/HCPCS: 36415; 71045; 80048; 80076; 81000; 83735; 84100; 85007; 85025; 85027; 87081; 87086; 92610-GN; 97110-GP; 97530-GP; J0696; J2270